=== PATIENT | male | born 1940 | race American Indian/Alaskan Native ===

== ENCOUNTER 2018-03-22 14:19 | Emergency (ER) | payer MEDICARE, MEDICAID, OTHER, SELFPAY ==
--- NOTE | 2018-03-22 14:26 | ED.WEAKNESS ---
HPI - Weakness General Chief complaint: Weakness Stated complaint: Weakness Time Seen by Provider: 03/22/18 14:26 Source: patient Mode of arrival: EMS Limitations: no limitations History of Present Illness HPI Narrative: [age] year male brought in by EMS for evaluation of 1-2 days of weakness. Patient did state that he rolled out of bed last evening and did hit his head. He stated that he has been feeling weak. No chest pain or shortness of breath Related Data Home Medications Medication Instructions Recorded Confirmed ranitidine HCl 150 mg PO BID #0 09/02/11 03/22/18 aspirin 81 mg PO DAILY 03/22/18 03/22/18 gabapentin 100 mg PO BID 03/22/18 03/22/18 gabapentin 200 mg PO BEDTIME 03/22/18 03/22/18 loratadine 10 mg PO DAILY PRN 03/22/18 03/22/18 metoprolol succinate 25 mg PO BID 03/22/18 03/22/18 omeprazole 1 cap PO BID 03/22/18 03/22/18 tizanidine 4 mg PO BID PRN 03/22/18 03/22/18 Previous Rx's Medication Instructions Recorded cephalexin [Keflex] 500 mg PO BID 5 Days #10 cap 03/22/18 Allergies Allergy/AdvReac Type Severity Reaction Status Date / Time No Known Allergies Allergy Uncoded 09/12/17 11:46 Review of Systems Constitutional Denies chills, Reports fatigue, Denies fever(s), Reports lethargy and Reports malaise Cardiovascular Denies chest pain and Denies dyspnea Respiratory Denies cough and Denies dyspnea Gastrointestinal Gastrointestinal: Reports abdominal pain, Denies nausea and Denies vomiting Musculoskeletal Denies myalgias and Denies arthralgias Integumentary/Breasts Denies lesions and Denies rash Endocrine Reports fatigue Hematologic/Lymphatic Denies easy bleeding and Denies easy bruising PFSH Medical History Gastroesophageal reflux disease (Acute) Hypertension (Acute) Surgical History H/O hernia repair (Acute) Social History Smoking Status: Never smoker Exam Initial Vital Signs Initial Vital Signs: Vital Signs Temperature 99.8 F H 03/22/18 14:35 Pulse Rate 80 03/22/18 14:35 Respiratory Rate 24 03/22/18 14:35 Blood Pressure 107/51 L 03/22/18 14:35 Pulse Oximetry 96 03/22/18 14:35 Const General: cooperative, well developed and well groomed HENLA Head: normal to inspection and normocephalic Resp Effort & Inspection: normal respiratory effort Auscultation: clear to auscultation bilaterally Cardio Rate: regular rate Rhythm: regular rhythm GI Inspection: non-distended Palpation: soft Other: Large right-sided ventral hernia consistent with stated history Skin Lesions: no lesions Rashes: no rashes Neuro General: alert, awake and oriented x3 Cognition: normal cognition Speech: speech normal Extrem General: capillary refill normal Psych Appearance: grossly normal and well kempt Course Orders Ordered: ED Orders 03/22/18 14:27 EKG-12 Lead Stat 03/22/18 14:57 CT head/brain wo con Stat XR chest 1V Stat 03/22/18 15:03 Complete Blood Count AUTO DIFF Stat Comprehensive Metabolic Panel Stat Lipase Stat Thyroid Stimulating Hormone Stat Troponin I Stat 03/22/18 15:25 XR pelvis 1-2V Stat 03/22/18 15:39 Lactate (Lactic Acid) Stat Procalcitonin Stat 03/22/18 15:46 Blood Culture Stat 03/22/18 15:55 Urine Culture Stat Urine Microscopic Stat Discontinued Medications Hydrocodone Bitart/Acetaminophen ([place] 5/325) 1 tab PO NOW ONE Stop: 03/22/18 15:26 Last Admin: 03/22/18 15:31 Dose: 1 tab Sodium Chloride (Normal Saline 0.9%) 1,000 mls @ 1,000 mls/hr IV BOLUS ONE Stop: 03/22/18 15:55 Last Infusion: 03/22/18 16:45 Dose: 0 mls/hr Admin: 03/22/18 15:30 Dose: 1,000 mls/hr Vital Signs - 8 hr 03/22/18 14:35 03/22/18 17:02 Temperature 99.8 F H Pulse Rate 80 80 Respiratory Rate 24 34 H Blood Pressure 107/51 L Blood Pressure [Left Arm] 103/49 L Pulse Oximetry 96 97 MDM - Weakness Lab Data Attestation: I reviewed the patient's lab results. Result diagrams: 03/22/18 15:03 03/22/18 15:03 Lab Results 03/22/18 03/22/18 03/22/18 Range/Units 15:03 15:03 15:03 WBC 17.8 H (4.5-11.0) X10^3/uL RBC 4.07 L (4.5-5.9) X10^6/uL Hgb 14.7 (13.5-17.5) g/dL Hct 42.8 (41-53) % MCV 105.1 H (80-100) fL MCH 36.1 H (26-34) PG MCHC 34.3 (30-36) % RDW 13.4 (11.6-14.8) % Plt Count 344 (150-400) X10^3/uL Neut % (Auto) 77.7 H (50-75) % Lymph % (Auto) 11.5 L (25-40) % [place] % (Auto) 10.0 (3-14) % Eos % (Auto) 0.2 L (2-4) % Baso % (Auto) 0.6 (0-2) % Neut # (Auto) 12636 H (3547-0548) /uL Sodium 138 (137-145) mmol/L Potassium 4.6 (3.4-5.1) mmol/L Chloride 100 (98-107) mmol/L Carbon Dioxide 28 (22-32) mmol/L BUN 18 (9-20) mg/dL Creatinine 1.20 (0.66-1.25) mg/dL Estimated GFR 58.4 L (>60) mL/min BUN/Creatinine Ratio 15.0 (6-22) Glucose 101 (80-110) mg/dL Lactate (0.7-2.1) mmol/L Calcium 8.6 (8.4-10.2) mg/dL Total Bilirubin 1.0 (0.2-1.3) mg/dL AST 19 (17-59) IU/L ALT 16 L (21-72) IU/L Alkaline Phosphatase 98 (38-126) U/L Troponin I < 0.012 (0.01-0.034) ng/mL Total Protein 7.1 (6.3-8.2) g/dL Albumin 3.6 (3.5-5.0) g/dL Globulin 3.5 (1.7-4.1) g/dL Albumin/Globulin Ratio 1.0 (1.0-2.8) Lipase 54 (23-300) U/L Procalcitonin (<0.5) ng/mL TSH 0.88 (0.47-4.68) uIU/mL Urine RBC (0-5/HPF) Urine WBC (0-5/HPF) Ur Squamous Epith Cells Urine Bacteria (None) Ur Culture Indicated? Micro UA Comment 03/22/18 03/22/18 03/22/18 Range/Units 15:39 15:39 15:55 WBC (4.5-11.0) X10^3/uL RBC (4.5-5.9) X10^6/uL Hgb (13.5-17.5) g/dL Hct (41-53) % MCV (80-100) fL MCH (26-34) PG MCHC (30-36) % RDW (11.6-14.8) % Plt Count (150-400) X10^3/uL Neut % (Auto) (50-75) % Lymph % (Auto) (25-40) % [place] % (Auto) (3-14) % Eos % (Auto) (2-4) % Baso % (Auto) (0-2) % Neut # (Auto) (9748-9274) /uL Sodium (137-145) mmol/L Potassium (3.4-5.1) mmol/L Chloride (98-107) mmol/L Carbon Dioxide (22-32) mmol/L BUN (9-20) mg/dL Creatinine (0.66-1.25) mg/dL Estimated GFR (>60) mL/min BUN/Creatinine Ratio (6-22) Glucose (80-110) mg/dL Lactate 1.5 (0.7-2.1) mmol/L Calcium (8.4-10.2) mg/dL Total Bilirubin (0.2-1.3) mg/dL AST (17-59) IU/L ALT (21-72) IU/L Alkaline Phosphatase (38-126) U/L Troponin I (0.01-0.034) ng/mL Total Protein (6.3-8.2) g/dL Albumin (3.5-5.0) g/dL Globulin (1.7-4.1) g/dL Albumin/Globulin Ratio (1.0-2.8) Lipase (23-300) U/L Procalcitonin 1.03 H (<0.5) ng/mL TSH (0.47-4.68) uIU/mL Urine RBC 1-5/hpf (0-5/HPF) Urine WBC 10-30/hpf H (0-5/HPF) Ur Squamous Epith Cells 1-5 /hpf Urine Bacteria Moderate (10-30) H (None) Ur Culture Indicated? Specimen cultured Micro UA Comment Not Reportable Urine Dip Bedside Urine Glucose Negative Bedside Urine Bilirubin ++ 2 Bedside Urine Ketone - Negative Urine Specific [place] 1.020 Bedside Urine Occult Blood - Negative Bedside Urine pH 6.0 Bedside Urine Protein + 30 Bedside Urine Urobilinogen +/- 1mg Bedside Urine Nitrite - Negative Bedside Urine Leukocytes ++ 125 Esterase Imaging Data Chest x-ray: Radiologist's impression: PROCEDURE: XR CHEST 1V INDICATIONS: SOB TECHNIQUE: One view of the chest was acquired. COMPARISON: [facility], , CHEST 1 VIEW, 09/03/2011, 6:58. [facility], , CHEST 2 VIEW, 02/14/2016, 19:39. FINDINGS: Surgical changes and devices: None. Lungs and pleura: No pleural effusions or pneumothorax. Lungs are abnormal with a chronic interstitial lung disease pattern with likelihood of a mild degree of superimposed acute pulmonary edema. Mediastinum: Mediastinal contours appear normal. Heart size is at or just above the upper limits of normal. Bones and chest wall: No suspicious bony lesions. Overlying soft tissues appear unremarkable. IMPRESSION: Chronic moderately severe interstitial lung disease with mild superimposed pulmonary edema. A focal pneumonia is not found. Dictated by: Cecilio Bearden M.D. on 03/22/2018 at 15:17 Approved by: Cecilio Bearden M.D. on 03/22/2018 at 15:18 CT scan - head: Radiologist's impression: PROCEDURE: CT HEAD/BRAIN WO CON INDICATIONS: fall yesterday with loc TECHNIQUE: Noncontrast 4.5 mm thick angled axial sections acquired from the foramen magnum to the vertex, with coronal and sagittal reformats. For radiation dose reduction, the following was used: automated exposure control, adjustment of mA and/or kV according to patient size. COMPARISON: None. FINDINGS: Image quality: Excellent. CSF spaces: Basal cisterns are patent. No extra-axial fluid collections. The ventricles are symmetric in size and shape. Brain: No intracranial bleeds or masses. There is cerebral volume loss for age, with resultant ventricular and sulcal prominence. There are periventricular and deep white matter chronic small vessel ischemic changes. There is intracranial internal carotid artery atherosclerosis. Skull and face: Calvarium and visualized facial bones appear intact, without suspicious lesions. Sinuses: Visualized sinuses and mastoids are clear. IMPRESSION: No trauma found. No skull fracture identified. Moderate microvascular atherosclerotic change is present within the deep white matter of each hemisphere. Dictated by: Cecilio Bearden M.D. on 03/22/2018 at 15:18 Approved by: Cecilio Bearden M.D. on 03/22/2018 at 15:19 Pelvis x-ray: Radiologist's impression: PROCEDURE: XR PELVIS 1-2V INDICATIONS: Right hip pain after fall TECHNIQUE: Single frontal view of the pelvis acquired. COMPARISON: None. FINDINGS: Bones: No fractures or dislocations. No suspicious bony lesions. Soft tissues: Visualized bowel gas pattern is unusually prominent in terms of gas filling of the bowel loops over the pelvis. No suspicious soft tissue calcifications. IMPRESSION: Unusual prominence of gas filling over the bowel loops over the pelvis. Chronicity and clinical significance not established. No trauma found. Dictated by: Cecilio Bearden M.D. on 03/22/2018 at 16:23 Approved by: Cecilio Bearden M.D. on 03/22/2018 at 16:23 ECG Data Attestation: I personally reviewed and interpreted this ECG as follows: Prior ECG tracings: not available for review Interpretation: Sinus rhythm Ventricular rate is 77 Normal axis Normal QRS Normal QTC Nonspecific ST T wave changes MDM Narrative Medical decision making narrative: Patient's workup here in the emergency department was positive for urinary tract infection. None of his radiologic studies showed acute pathology. He was given fluids. He was eating fast food that was brought in by his family members without any problems. He was alert and oriented. He was given a 1st dose of antibiotics here in the emergency department will send home with a prescription for this medication. Patient was given return precautions. I feel like a trial of oral antibiotics at home is not unreasonable for him. If he does return would consider admission to the hospital. Discussed all this with the patient and his family were bedside. They all expressed understanding and agreement with plan. Discharge Plan Departure Patient Disposition: Home Clinical Impression: Urinary tract infection Instructions: DI for Urinary Tract Infection (UTI) Activity Restrictions/Additional Instructions: Take all of your medications as directed. Make sure your increasing your fluid intake. Call your primary care doctor for a follow-up. Return to the emergency department for any new or worsening symptoms Prescriptions: New cephalexin [Keflex] 500 mg capsule 500 mg PO BID 5 Days Qty: 10 RF: 0 No Action ranitidine HCl 150 mg Tablet 150 mg PO BID Qty: 0 RF: 0 tizanidine 4 mg Tablet 4 mg PO BID PRN (Reason: Muscle Spasm) RF: 0 aspirin 81 mg Tablet,Delayed Release (Dr/Ec) 81 mg PO DAILY RF: 0 omeprazole 20 mg Capsule,Delayed Release(Dr/Ec) 1 cap PO BID RF: 0 gabapentin 100 mg Capsule 200 mg PO BEDTIME RF: 0 gabapentin 100 mg Capsule 100 mg PO BID RF: 0 metoprolol succinate 25 mg Tablet Extended Release 24 Hr 25 mg PO BID RF: 0 loratadine 10 mg Tablet 10 mg PO DAILY PRN (Reason: Allergy Symptoms) RF: 0
[2018-03-22 14:35] VITALS: BP 107/51; PULSE 80; RESP 24; TEMP 37.7; O2SAT 96
--- NOTE | 2018-03-22 14:57 | DI.RAD.S_ITS ---
PROCEDURE: XR CHEST 1V INDICATIONS: SOB TECHNIQUE: One view of the chest was acquired. COMPARISON: [facility], CHEST 1 VIEW, 09/03/2011, 6:58. [facility], CHEST 2 VIEW, 02/14/2016, 19:39. FINDINGS: Surgical changes and devices: None. Lungs and pleura: No pleural effusions or pneumothorax. Lungs are abnormal with a chronic interstitial lung disease pattern with likelihood of a mild degree of superimposed acute pulmonary edema. Mediastinum: Mediastinal contours appear normal. Heart size is at or just above the upper limits of normal. Bones and chest wall: No suspicious bony lesions. Overlying soft tissues appear unremarkable. IMPRESSION: Chronic moderately severe interstitial lung disease with mild superimposed pulmonary edema. A focal pneumonia is not found. Dictated by: Cecilio Bearden M.D. on 03/22/2018 at 15:17 Approved by: Cecilio Bearden M.D. on 03/22/2018 at 15:18
--- NOTE | 2018-03-22 14:57 | DI.CT.S_ITS ---
PROCEDURE: CT HEAD/BRAIN WO CON INDICATIONS: fall yesterday with loc TECHNIQUE: Noncontrast 4.5 mm thick angled axial sections acquired from the foramen magnum to the vertex, with coronal and sagittal reformats. For radiation dose reduction, the following was used: automated exposure control, adjustment of mA and/or kV according to patient size. COMPARISON: None. FINDINGS: Image quality: Excellent. CSF spaces: Basal cisterns are patent. No extra-axial fluid collections. The ventricles are symmetric in size and shape. Brain: No intracranial bleeds or masses. There is cerebral volume loss for age, with resultant ventricular and sulcal prominence. There are periventricular and deep white matter chronic small vessel ischemic changes. There is intracranial internal carotid artery atherosclerosis. Skull and face: Calvarium and visualized facial bones appear intact, without suspicious lesions. Sinuses: Visualized sinuses and mastoids are clear. IMPRESSION: No trauma found. No skull fracture identified. Moderate microvascular atherosclerotic change is present within the deep white matter of each hemisphere. Dictated by: Cecilio Bearden M.D. on 03/22/2018 at 15:18 Approved by: Cecilio Bearden M.D. on 03/22/2018 at 15:19
[2018-03-22 15:17] LABS: Add Manual Diff / Slide Review NO; Basophils Percent Auto 0.6 % (0-2); Eosinophils Percent Auto 0.2 % (2-4); Hematocrit 42.8 % (41-53); Hemoglobin 14.7 g/dL (13.5-17.5); Lymphocytes Percent Auto 11.5 % (25-40); Mean Corpuscular HGB Conc 34.3 % (30-36); Mean Corpuscular Hemoglobin 36.1 PG (26-34); Mean Corpuscular Volume 105.1 fL (80-100); Neutrophils Absolute Auto 13800 /uL (3000-5900); Neutrophils Percent Auto 77.7 % (50-75); Platelet Count 344 X10^3/uL (150-400); Red Blood Cell Count 4.07 X10^6/uL (4.5-5.9); Red Cell Distribution Width 13.4 % (11.6-14.8); White Blood Cell Count 17.8 X10^3/uL (4.5-11.0)
--- NOTE | 2018-03-22 15:25 | DI.RAD.S_ITS ---
PROCEDURE: XR PELVIS 1-2V INDICATIONS: Right hip pain after fall TECHNIQUE: Single frontal view of the pelvis acquired. COMPARISON: None. FINDINGS: Bones: No fractures or dislocations. No suspicious bony lesions. Soft tissues: Visualized bowel gas pattern is unusually prominent in terms of gas filling of the bowel loops over the pelvis. No suspicious soft tissue calcifications. IMPRESSION: Unusual prominence of gas filling over the bowel loops over the pelvis. Chronicity and clinical significance not established. No trauma found. Dictated by: Cecilio Bearden M.D. on 03/22/2018 at 16:23 Approved by: Cecilio Bearden M.D. on 03/22/2018 at 16:23
[2018-03-22 15:26] LABS: Alanine Aminotransferase 16 IU/L (21-72); Albumin 3.6 g/dL (3.5-5.0); Alkaline Phosphatase 98 U/L (38-126); Aspartate Aminotransferase 19 IU/L (17-59); Blood Urea Nitrogen 18 mg/dL (9-20); Calcium 8.6 mg/dL (8.4-10.2); Carbon Dioxide 28 mmol/L (22-32); Chloride 100 mmol/L (98-107); Estimated Glomerular Filt Rate 58.4 mL/min (>60); Globulin 3.5 g/dL (1.7-4.1); Glucose 101 mg/dL (80-110); HEMOLYSIS < 15 (0-50); Lipase 54 U/L (23-300); Potassium 4.6 mmol/L (3.4-5.1); Sodium 138 mmol/L (137-145); Total Protein 7.1 g/dL (6.3-8.2)
[2018-03-22] MEDS: SODIUM CHLORIDE 0.9% 1,000 ML 1000 ML IV (15:30)
[2018-03-22] MEDS: HYDROCODONE/ACET 5/325 TABLET 1 TAB PO (15:31)
[2018-03-22 15:49] LABS: Troponin I < 0.012 ng/mL (0.01-0.034)
[2018-03-22 16:03] LABS: Lactate (Lactic Acid) 1.5 mmol/L (0.7-2.1)
[2018-03-22 16:05] LABS: Thyroid Stimulating Hormone 0.88 uIU/mL (0.47-4.68)
[2018-03-22 16:29] LABS: Bacteria Urine Moderate (10-30); Culture Indicated Urine Specimen Cultured; RBC Urine 1-5/HPF (0-5/HPF); Squamous Epithelial Cell Urine 1-5 /HPF; WBC Urine 10-30/HPF (0-5/HPF)
[2018-03-22 17:02] VITALS: BP 103/49; PULSE 80; RESP 34; O2SAT 97
[2018-03-22 17:36] LABS: Procalcitonin 1.03 ng/mL (<0.5)
[2018-03-22] MEDS: cephALEXin 250 MG CAPSULE 500 MG PO (17:55)
[2018-03-22 18:04] VITALS: BP 107/53; PULSE 84; RESP 21; TEMP 36.7; O2SAT 100
== END 2018-03-22 18:16 | disposition home or self-care (01) ==
PROVIDERS: Emergency Provider Emergency Medicine; Family Provider Physician Assistant; PCP Physician Assistant
DX: N39.0 Urinary tract infection, site not specified (principal); R53.83 Other fatigue
CPT/HCPCS: 36415; 36591; 70450; 71045; 72170; 80053; 81003; 81015; 83605; 83690; 84145; 84443; 84484; 85025; 87040; 87077; 87086; 87147; 93005; 93010; 96360; 99283; 99285

== ENCOUNTER 2018-03-25 11:08 | Inpatient (IN) | payer MEDICARE, MEDICAID, OTHER, SELFPAY ==
[2018-03-25] VITALS (11 sets, daily range): BP systolic 90–147; BP diastolic 39–73; PULSE 64–93; RESP 18–37; TEMP 36.3–37.3; O2SAT 94–99; BMI 35.4; BMI 29.5
--- NOTE | 2018-03-25 | DI.US.S_ITS ---
PROCEDURE: US ABDOMEN LIMITED INDICATIONS: RUQ PAIN, ELEVATED LFT. R/O CHOLECYSTITIS TECHNIQUE: Real-time focused scanning was performed of the inguinal region, with image documentation. COMPARISON: None. FINDINGS: Liver measures 14.4 cm in length and is grossly unremarkable. The gallbladder is unremarkable. No gallstones are visualized. There is mild gallbladder wall thickening. No pericholecystic fluid or sonographic Dye sign. No biliary ductal dilatation is seen Pancreas is not well seen due to shadowing bowel gas. IMPRESSION: Mild gallbladder wall thickening however this is technically age indeterminate and nonspecific. No cholelithiasis is seen. No other sonographic evidence of acute cholecystitis. Please correlate clinically. Dictated by: Mina Velasco M.D. on 03/25/2018 at 17:07 Approved by: Mina Velasco M.D. on 03/25/2018 at 17:09
[2018-03-25] MEDS: SODIUM CHLORIDE 0.9% 1,000 ML 1000 ML IV ×3 (11:10→14:26)
--- NOTE | 2018-03-25 11:15 | ED_ITS ---
HPI - General Adult General Chief complaint: Chest Pain Stated complaint: SOB, chest pain Time Seen by Provider: 03/25/18 11:13 Source: patient and family Mode of arrival: EMS Limitations: altered mental status History of Present Illness HPI narrative: Patient is a 78-year-old male who I evaluated here in the emergency department a couple days ago for weakness. Diagnose the patient with a urinary tract infection. Patient is here with the family. They stated that they have been giving him his antibiotics. He states as he was discharged from the emergency department 2 days ago he has fall in 2 different times. They state that this morning they again found him next to his bed. Unknown as to how long he was down. He states that he has not been eating and drinking. Has been somewhat more confused. Related Data Home Medications Medication Instructions Recorded Confirmed ranitidine HCl 150 mg PO BID #0 09/02/11 03/25/18 aspirin 81 mg PO DAILY 03/22/18 03/25/18 loratadine 10 mg PO DAILY 03/22/18 03/25/18 metoprolol succinate 25 mg PO BID 03/22/18 03/25/18 omeprazole 1 cap PO BID 03/22/18 03/25/18 tizanidine 4 mg PO BID PRN 03/22/18 03/25/18 gabapentin 600 mg PO BID 03/25/18 03/25/18 Previous Rx's Medication Instructions Recorded cephalexin [Keflex] 500 mg PO BID 5 Days #10 cap 03/22/18 Allergies Allergy/AdvReac Type Severity Reaction Status Date / Time No Known Drug Allergies Allergy Verified 03/22/18 17:53 Review of Systems Constitutional Denies fever(s), Reports frequent falls and Reports lethargy Cardiovascular Denies chest pain and Denies dyspnea Respiratory Denies dyspnea Gastrointestinal Gastrointestinal: Reports abdominal pain, Denies nausea and Denies vomiting Genitourinary Denies dysuria Musculoskeletal Comments: Right hip pain Integumentary/Breasts Comments: Small bruise on his abdomen from where he fell Neurologic Reports confusion, Reports frequent falls and Reports lack of coordination Psychiatric Reports confusion Hematologic/Lymphatic Denies easy bleeding and Denies easy bruising [facility] Medical History UTI (urinary tract infection) (Acute) Gastroesophageal reflux disease (Chronic) Hypertension (Chronic) Surgical History H/O hernia repair (Chronic) Social History household members: family Smoking Status: Former smoker alcohol intake: former Exam Initial Vital Signs Initial Vital Signs: Vital Signs Temperature 97.7 F 03/25/18 11:15 Pulse Rate 66 03/25/18 11:15 Respiratory Rate 36 H 03/25/18 11:15 Blood Pressure 93/54 L 03/25/18 11:15 Pulse Oximetry 96 03/25/18 11:15 Const General: ill appearing Orientation: alert, awake, oriented to person, oriented to place and confused HENMT Head: normal to inspection and normocephalic Resp Effort & Inspection: normal respiratory effort Auscultation: clear to auscultation bilaterally Cardio Rate: regular rate Rhythm: regular rhythm GI Inspection: non-distended Palpation: soft, No firm and No tender Other: Large ventral hernia unchanged from his last evaluation Skin Other: 2 cm abrasion just above the ventral hernia scar on his abdomen. No surrounding erythema. No drainage. Neuro General: alert and awake Cognition: abnormal cognition (Confused) Extrem General: normal to inspection and capillary refill normal Other: Tenderness to palpation of the right hip. Psych Appearance: disheveled Scores GCS Troy coma scale eye opening: Spontaneous Troy coma scale verbal response: Confused Holly coma scale motor response: Obey commands Troy coma scale total score: 14 Course Orders Ordered: ED Orders 03/25/18 11:41 CT head/brain wo con Stat 03/25/18 12:20 Complete Blood Count AUTO DIFF Stat Comprehensive Metabolic Panel Stat Creatine Kinase Stat Lactate (Lactic Acid) Stat Procalcitonin Stat 03/25/18 12:30 Blood Culture Stat 03/25/18 14:31 Consult to Physical Therapy Evaluate & Treat Consult to [employer] Routine 03/25/18 14:32 Consult to Occupational Therapy Evaluate & Treat Education, smoking cessation ONGOING 03/26/18 05:00 CPK [Creatine Kinase] Routine Complete Blood Count AUTO DIFF Routine Comprehensive Metabolic Panel Routine Aspirin (Aspirin Ec) 81 mg PO DAILY SHANE Gabapentin (Neurontin) 600 mg PO BID SHANE Sodium Chloride (Normal Saline 0.9%) 3,265.86 mls @ 1,088.62 mls/hr 30 ml/kg infuse over 3 hr (3265.86 ml) IV CONT SHANE Last Admin: 03/25/18 14:02 Dose: Sodium Chloride (Normal Saline 0.9%) 1,000 mls @ 250 mls/hr IV CONT SHANE Last Admin: 03/25/18 15:26 Dose: 250 mls/hr Morphine Sulfate (Morphine) 2 mg IV Q6H PRN PRN Reason: Pain, Moderate (4-6) Last Admin: 03/25/18 16:37 Dose: 2 mg Ranitidine HCl (Zantac) 150 mg PO BID SHANE Tizanidine HCl (Zanaflex) 4 mg PO BID PRN PRN Reason: MUSCLE SPASMS Discontinued Medications Ceftriaxone Sodium/Dextrose (Rocephin) 1 gm in 50 mls @ 100 mls/hr IV NOW ONE Stop: 03/25/18 12:09 Last Infusion: 03/25/18 13:15 Dose: 0 mls/hr Admin: 03/25/18 12:40 Dose: 100 mls/hr Sodium Chloride (Normal Saline 0.9%) 1,000 mls @ 1,000 mls/hr IV BOLUS ONE Stop: 03/25/18 13:37 Last Infusion: 03/25/18 13:33 Dose: 0 mls/hr Admin: 03/25/18 11:10 Dose: 1,000 mls/hr Sodium Chloride (Normal Saline 0.9%) 1,000 mls @ 1,000 mls/hr IV BOLUS ONE Stop: 03/25/18 14:37 Last Infusion: 03/25/18 14:22 Dose: 0 mls/hr Admin: 03/25/18 13:48 Dose: 1,000 mls/hr Sodium Chloride (Normal Saline 0.9%) 1,000 mls @ 1,000 mls/hr IV BOLUS ONE Stop: 03/25/18 15:24 Last Infusion: 03/25/18 14:27 Dose: 1,000 mls/hr Admin: 03/25/18 14:26 Dose: 1,000 mls/hr Vital Signs - 8 hr 03/25/18 13:00 03/25/18 13:30 03/25/18 13:55 Temperature 97.7 F 97.4 F L Pulse Rate 64 71 70 Respiratory Rate 37 H 32 H 34 H Blood Pressure 120/57 L Blood Pressure [Right Arm] 103/52 L 103/49 L Pulse Oximetry 98 99 97 03/25/18 14:26 03/25/18 14:32 03/25/18 17:46 Temperature 98.4 F Pulse Rate 74 75 Respiratory Rate 28 H Blood Pressure 133/73 Blood Pressure [Right Arm] 130/63 Pulse Oximetry 97 97 94 03/25/18 19:30 Temperature 98.4 F Pulse Rate 85 Respiratory Rate 19 Blood Pressure 147/70 H Blood Pressure [Right Arm] Pulse Oximetry 98 Medical Decision Making Lab Data Lab results reviewed: Yes I reviewed the patient's lab results. Result diagrams: 03/25/18 12:20 03/25/18 12:20 Lab Results 03/25/18 03/25/18 03/25/18 Range/Units 12:20 12:20 12:20 WBC 12.2 H (4.5-11.0) X10^3/uL RBC 3.44 L (4.5-5.9) X10^6/uL Hgb 12.3 L (13.5-17.5) g/dL Hct 36.4 L (41-53) % MCV 105.8 H (80-100) fL MCH 35.8 H (26-34) PG MCHC 33.9 (30-36) % RDW 12.7 (11.6-14.8) % Plt Count 293 (150-400) X10^3/uL Neut % (Auto) 78.1 H (50-75) % Lymph % (Auto) 7.2 L (25-40) % Otero % (Auto) 12.1 (3-14) % Eos % (Auto) 2.3 (2-4) % Baso % (Auto) 0.3 (0-2) % Neut # (Auto) 9500 H (7218-6690) /uL RBC Morphology See below Polychromasia 1+ H Macrocytosis 1+ H Sodium 139 (137-145) mmol/L Potassium 4.2 (3.4-5.1) mmol/L Chloride 104 (98-107) mmol/L Carbon Dioxide 24 (22-32) mmol/L BUN 24 H (9-20) mg/dL Creatinine 1.00 (0.66-1.25) mg/dL Estimated GFR > 60.0 (>60) mL/min BUN/Creatinine Ratio 24.0 H (6-22) Glucose 106 (80-110) mg/dL Lactate (0.7-2.1) mmol/L Calcium 7.8 L (8.4-10.2) mg/dL Total Bilirubin 2.3 H (0.2-1.3) mg/dL AST 119 H (17-59) IU/L ALT 43 (21-72) IU/L Alkaline Phosphatase 127 H (38-126) U/L Total Creatine Kinase 750 H (55-170) U/L Total Protein 6.2 L (6.3-8.2) g/dL Albumin 2.7 L (3.5-5.0) g/dL Globulin 3.5 (1.7-4.1) g/dL Albumin/Globulin Ratio 0.8 L (1.0-2.8) Procalcitonin 0.63 H (<0.5) ng/mL 03/25/18 Range/Units 12:20 WBC (4.5-11.0) X10^3/uL RBC (4.5-5.9) X10^6/uL Hgb (13.5-17.5) g/dL Hct (41-53) % MCV (80-100) fL MCH (26-34) PG MCHC (30-36) % RDW (11.6-14.8) % Plt Count (150-400) X10^3/uL Neut % (Auto) (50-75) % Lymph % (Auto) (25-40) % Otero % (Auto) (3-14) % Eos % (Auto) (2-4) % Baso % (Auto) (0-2) % Neut # (Auto) (1939-7011) /uL RBC Morphology Polychromasia Macrocytosis Sodium (137-145) mmol/L Potassium (3.4-5.1) mmol/L Chloride (98-107) mmol/L Carbon Dioxide (22-32) mmol/L BUN (9-20) mg/dL Creatinine (0.66-1.25) mg/dL Estimated GFR (>60) mL/min BUN/Creatinine Ratio (6-22) Glucose (80-110) mg/dL Lactate 1.0 (0.7-2.1) mmol/L Calcium (8.4-10.2) mg/dL Total Bilirubin (0.2-1.3) mg/dL AST (17-59) IU/L ALT (21-72) IU/L Alkaline Phosphatase (38-126) U/L Total Creatine Kinase (55-170) U/L Total Protein (6.3-8.2) g/dL Albumin (3.5-5.0) g/dL Globulin (1.7-4.1) g/dL Albumin/Globulin Ratio (1.0-2.8) Procalcitonin (<0.5) ng/mL Imaging Data X-ray pelvis: Radiologist's impression: ROCEDURE: XR PELVIS 1-2V INDICATIONS: fall TECHNIQUE: 1 view(s) of the pelvis acquired. COMPARISON: [facility], XR PELVIS 1-2V, 03/22/2018, 15:35. FINDINGS: Bones: No fractures or dislocations. No suspicious bony lesions. Soft tissues: Atypical gas-filled loops of bowel project over the lower pelvis may be related to a hernia. No suspicious soft tissue calcifications. Multiple surgical clips project over the lower pelvis which are stable. IMPRESSION: No fracture. No osseous lesion. If symptoms and/or clinical suspicion for pathology persists, further assessment with repeat radiographs (7-10 days) or advanced imaging (e.g. CT, MRI or bone scan) may be helpful. Dictated by: Shea Jones MD, PhD on 03/25/2018 at 11:56 Approved by: Shea Jones MD, PhD on 03/25/2018 at 11:58 Chest x-ray: Radiologist's impression: PROCEDURE: XR CHEST 1V INDICATIONS: Shortness of breath possible sepsis TECHNIQUE: One view of the chest was acquired. COMPARISON: [facility], CHEST 2 VIEW, 02/14/2016, 19:39. [facility], XR CHEST 1V, 03/22/2018, 14:43. FINDINGS: Surgical changes and devices: None. Lungs and pleura: No pleural effusions or pneumothorax. Bilateral right greater than left interstitial thickening has progressed compared to 02/14/2016 and is stable compared to 03/22/2018. Mediastinum: Mediastinal contours appear normal. Heart size is normal. Bones and chest wall: No suspicious bony lesions. Overlying soft tissues appear unremarkable. IMPRESSION: Bilateral chronic interstitial lung disease. No definite acute cardiopulmonary disease process. Dictated by: Shea Jones MD, PhD on 03/25/2018 at 11:58 Approved by: Shea Jones MD, PhD on 03/25/2018 at 11:59 CT scan - head: Radiologist's impression: [address] [address] [address] Scan Report Signed Patient: Art Barreto WMR#: [id number] : 9Acct:[id number] Age/Sex: 78 / MDate of Service: 03/25/18 Loc: ED Accession Number: [id number] Procedure: CT head/brain wo con Ordering Provider: Kwabena Quigley D.O. PROCEDURE: CT HEAD/BRAIN WO CON INDICATIONS: fall AMS TECHNIQUE: Noncontrast 4.5 mm thick angled axial sections acquired from the foramen magnum to the vertex, with coronal and sagittal reformats. For radiation dose reduction, the following was used: automated exposure control, adjustment of mA and/or kV according to patient size. COMPARISON: [facility], CT, CT HEAD/BRAIN WO CON, 03/22/2018, 14:53. FINDINGS: Image quality: Excellent. CSF spaces: Basal cisterns are patent. No extra-axial fluid collections. The ventricles are symmetric in size and shape. Brain: No intracranial bleeds or masses. There is cerebral volume loss for age , with resultant ventricular and sulcal prominence. There are periventricular and deep white matter chronic small vessel ischemic changes. There is intracranial internal carotid artery and vertebral artery atherosclerosis. Skull and face: Calvarium and visualized facial bones appear intact, without suspicious lesions. Sinuses: Visualized sinuses and mastoids are clear. IMPRESSION: No acute intracranial disease process. Dictated by: Shea Jones MD, PhD on 03/25/2018 at 11:53 Approved by: Shea Jones MD, PhD on 03/25/2018 at 11:55 ECG Data Attestation: I personally reviewed and interpreted this ECG as follows: Prior ECG tracings: not available for review Interpretation: Sinus rhythm Ventricular rate is 72 Normal axis Occasional PACs Normal QRS Normal QTC No ST T wave changes MDM Narrative Medical decision making narrative: Patient is a known urinary tract infection from his last visit here in the emergency department. His a he does have an elevated white blood cell count. Elevated procalcitonin. Normal lactate. Has never been hypotensive since being here in the emergency department. Is significantly more weak today than from his last visit here in the ER. No new findings found on radiologic studies. Patient was afebrile. Blood cultures were obtained. He was given 1g Rocephin here in the emergency department for treatment of the suspected infection. Discussed the patient with the admitting provider who will admit for continued evaluation treatment. I did discuss the admission with the patient and the family were at bedside. They expressed understanding and agreement this plan. Discharge Plan Departure Patient Disposition: Admitted As Inpatient Clinical Impression: Urinary tract infection, Weakness, Acute alteration in mental status Discharge Date/Time: 03/25/18 14:29 Interventions: ED Discharge Assessment Last Done: 03/25/18 13:55 Admit Date/Time: 03/25/18 13:04 Admit Provider: Meli Dougherty
--- NOTE | 2018-03-25 11:29 | DI.RAD.S_ITS ---
PROCEDURE: XR PELVIS 1-2V INDICATIONS: fall TECHNIQUE: 1 view(s) of the pelvis acquired. COMPARISON: [facility], , XR PELVIS 1-2V, 03/22/2018, 15:35. FINDINGS: Bones: No fractures or dislocations. No suspicious bony lesions. Soft tissues: Atypical gas-filled loops of bowel project over the lower pelvis may be related to a hernia. No suspicious soft tissue calcifications. Multiple surgical clips project over the lower pelvis which are stable. IMPRESSION: No fracture. No osseous lesion. If symptoms and/or clinical suspicion for pathology persists, further assessment with repeat radiographs (7-10 days) or advanced imaging (e.g. CT, MRI or bone scan) may be helpful. Dictated by: Shea Jones MD, PhD on 03/25/2018 at 11:56 Approved by: Shea Jones MD, PhD on 03/25/2018 at 11:58
--- NOTE | 2018-03-25 11:30 | DI.RAD.S_ITS ---
PROCEDURE: XR CHEST 1V INDICATIONS: Shortness of breath possible sepsis TECHNIQUE: One view of the chest was acquired. COMPARISON: [facility], , CHEST 2 VIEW, 02/14/2016, 19:39. [facility], , XR CHEST 1V, 03/22/2018, 14:43. FINDINGS: Surgical changes and devices: None. Lungs and pleura: No pleural effusions or pneumothorax. Bilateral right greater than left interstitial thickening has progressed compared to 02/14/2016 and is stable compared to 03/22/2018. Mediastinum: Mediastinal contours appear normal. Heart size is normal. Bones and chest wall: No suspicious bony lesions. Overlying soft tissues appear unremarkable. IMPRESSION: Bilateral chronic interstitial lung disease. No definite acute cardiopulmonary disease process. Dictated by: Shea Jones MD, PhD on 03/25/2018 at 11:58 Approved by: Shea Jones MD, PhD on 03/25/2018 at 11:59
--- NOTE | 2018-03-25 11:41 | DI.CT.S_ITS ---
PROCEDURE: CT HEAD/BRAIN WO CON INDICATIONS: fall AMS TECHNIQUE: Noncontrast 4.5 mm thick angled axial sections acquired from the foramen magnum to the vertex, with coronal and sagittal reformats. For radiation dose reduction, the following was used: automated exposure control, adjustment of mA and/or kV according to patient size. COMPARISON: [facility], CT, CT HEAD/BRAIN WO CON, 03/22/2018, 14:53. FINDINGS: Image quality: Excellent. CSF spaces: Basal cisterns are patent. No extra-axial fluid collections. The ventricles are symmetric in size and shape. Brain: No intracranial bleeds or masses. There is cerebral volume loss for age, with resultant ventricular and sulcal prominence. There are periventricular and deep white matter chronic small vessel ischemic changes. There is intracranial internal carotid artery and vertebral artery atherosclerosis. Skull and face: Calvarium and visualized facial bones appear intact, without suspicious lesions. Sinuses: Visualized sinuses and mastoids are clear. IMPRESSION: No acute intracranial disease process. Dictated by: Shea Jones MD, PhD on 03/25/2018 at 11:53 Approved by: Shea Jones MD, PhD on 03/25/2018 at 11:55
[2018-03-25] MEDS: CEFTRIAXONE 1 GM/50 ML FROZ.PIGGY IV (12:40)
[2018-03-25 12:45] LABS: Basophils Percent Auto 0.3 % (0-2); Eosinophils Percent Auto 2.3 % (2-4); Hematocrit 36.4 % (41-53); Hemoglobin 12.3 g/dL (13.5-17.5); Lymphocytes Percent Auto 7.2 % (25-40); Mean Corpuscular HGB Conc 33.9 % (30-36); Mean Corpuscular Hemoglobin 35.8 PG (26-34); Mean Corpuscular Volume 105.8 fL (80-100); Monocytes Percent Auto 12.1 % (3-14); Neutrophils Absolute Auto 9500 /uL (3000-5900); Neutrophils Percent Auto 78.1 % (50-75); Platelet Count 293 X10^3/uL (150-400); Red Blood Cell Count 3.44 X10^6/uL (4.5-5.9); Red Cell Distribution Width 12.7 % (11.6-14.8); White Blood Cell Count 12.2 X10^3/uL (4.5-11.0)
[2018-03-25 12:47] LABS: Add Manual Diff / Slide Review SLIDE REVIEW
[2018-03-25 13:00] LABS: Alanine Aminotransferase 43 IU/L (21-72); Albumin 2.7 g/dL (3.5-5.0); Albumin Globulin Ratio 0.8 (1.0-2.8); Alkaline Phosphatase 127 U/L (38-126); Aspartate Aminotransferase 119 IU/L (17-59); Bilirubin Total 2.3 mg/dL (0.2-1.3); Blood Urea Nitrogen 24 mg/dL (9-20); Calcium 7.8 mg/dL (8.4-10.2); Carbon Dioxide 24 mmol/L (22-32); Chloride 104 mmol/L (98-107); Creatine Kinase 750 U/L (55-170); Estimated Glomerular Filt Rate > 60.0 mL/min (>60); Globulin 3.5 g/dL (1.7-4.1); Glucose 106 mg/dL (80-110); Sodium 139 mmol/L (137-145); Total Protein 6.2 g/dL (6.3-8.2)
[2018-03-25 13:03] LABS: HEMOLYSIS 58 (0-50); Potassium 4.2 mmol/L (3.4-5.1)
[2018-03-25 13:12] LABS: Procalcitonin 0.63 ng/mL (<0.5)
[2018-03-25 13:14] LABS: Macrocytosis 1+
[2018-03-25 13:15] LABS: Polychromasia 1+
--- NOTE | 2018-03-25 14:52 | P.HP_ITS ---
History of Present Illness Date Patient Seen: 03/25/18 Time Patient Seen: 14:41 Chief complaint: SOB, chest pain Narrative: 78-year-old male with past medical history of hypertension and GERD presents to emergency department status post fall. Patient was in the emergency department 3 days ago, during which time he presented with falls and presumed loss of consciousness. At that time workup was done, which revealed a UTI, but no fractures or intracranial abnormalities. Patient was given fluids in the emergency department and sent home on Keflex. Family brought patient home, but has not consistently been taking care of the patient 25/12 since discharge. They have left the house multiple times, and on 2 occasions found patient on the floor when they came back. After today's fall, patient was brought back to emergency department. Family is unaware of loss of consciousness, and patient does not remember. As per family, they have noted patient to be more lethargic and slightly altered today as opposed to any other days. When I interviewed patient, he is AAO x2, oriented to his name, birthday , the year, but unable to tell me his location. He denied any blurry vision or dizziness to me. He is currently complaining of right hip pain, which he has also complained about on Sunday. He denies any cough, shortness of breath, URI like symptoms. He does have right-sided musculoskeletal pain, likely due to his fall. Patient also has right upper quadrant pain on palpation, but no rebound tenderness. Patient denies any fevers or chills. He denies any nausea, vomiting, diarrhea, constipation. Patient is complaining of urinary frequency, but states that it has been going on for a very long time. Denies hematuria, dysuria. When I asked specifically about a fall, patient does remember falling , but he does not remember whether he passed out or not. He does not remember how long he was on the floor. He does not remember whether he had his head. Denies any leg swelling. In the emergency department, patient is afebrile, with normal pulse in the 70s, however he is tachypneic up to 37 RR, and hypotensive, down to 103/52. Lab work revealed WBC of 12.2 (which has improved from 17.83 days ago), hemoglobin 12.3, hematocrit 36.4, platelets 239. Sodium 139, potassium 4.2, chloride 104, bicarb 24, BUN 24, creatinine 1.0, blood glucose 106. CPK is 750, lactic acid is 1.0, T bili is 2.3, AST is 119, alk phos is 127. CT head was repeated, which revealed no acute intracranial disease process. Chest x-ray showed bilateral chronic interstitial lung disease, with no definite acute cardiopulmonary disease process. Pelvic x-ray done which showed no fractures or osseous lesions. Patient was given 3 L boluses in the ED, with improvement of blood pressure to 133/73, and respiratory rate coming down to 24-25RR. Patient was admitted for rehydration and further treatment of UTI. Patient History Medical History UTI (urinary tract infection) (Acute) Gastroesophageal reflux disease (Chronic) Hypertension (Chronic) Surgical History H/O hernia repair (Chronic) Family & Social History Safety & Behavioral: Feels Safe in Current Yes Environment Been Physically Hurt or No Threatened By a Person Tobacco & Substance use: Smoking Status Never smoker Substance Use Type does not use Meds Home Medications Medication Instructions Recorded Confirmed Type ranitidine HCl 150 mg PO BID #0 09/02/11 03/25/18 History aspirin 81 mg PO DAILY 03/22/18 03/25/18 History cephalexin [Keflex] 500 mg PO BID 5 Days #10 cap 03/22/18 03/25/18 Rx loratadine 10 mg PO DAILY 03/22/18 03/25/18 History metoprolol succinate 25 mg PO BID 03/22/18 03/25/18 History omeprazole 1 cap PO BID 03/22/18 03/25/18 History tizanidine 4 mg PO BID PRN 03/22/18 03/25/18 History gabapentin 600 mg PO BID 03/25/18 03/25/18 History Allergies Allergy/AdvReac Type Severity Reaction Status Date / Time No Known Drug Allergies Allergy Verified 03/22/18 17:53 Review of Systems Review of Systems All systems reviewed & are unremarkable except as noted in HPI and below Exam Vital Signs (past 8 hours): - 03/25/18 11:15 03/25/18 12:00 03/25/18 12:30 Temperature 97.7 F 97.5 F L 97.4 F L Pulse Rate 66 66 66 Respiratory Rate 36 H 36 H 34 H Blood Pressure 93/54 L Blood Pressure [Right Arm] 90/39 L 99/45 L Pulse Oximetry 96 97 97 03/25/18 13:00 03/25/18 13:30 03/25/18 13:55 Temperature 97.7 F 97.4 F L Pulse Rate 64 71 70 Respiratory Rate 37 H 32 H 34 H Blood Pressure 120/57 L Blood Pressure [Right Arm] 103/52 L 103/49 L Pulse Oximetry 98 99 97 03/25/18 14:26 Temperature Pulse Rate 74 Respiratory Rate Blood Pressure Blood Pressure [Right Arm] 130/63 Pulse Oximetry 97 Oxygen Delivery Method Room Air Narrative Exam Narrative: General: Patient is in mild distress from right hip pain HEENT: PERRLA bilaterally, EOMI bilaterally Neck: Supple, no LAD or JVD CV: Regular rate rhythm, no murmurs or gallops Respiratory: Clear to auscultation bilaterally, no wheezes or rhonchi GI: Tenderness to deep palpation in the right upper quadrant, positive bowel sounds, no organomegaly Musculoskeletal: Pain in the right hip while moving the right lower extremity Skin: Dry skin around all the foot digits. No edema or bruising appreciated Psych: Patient is AO x2, oriented to name and birthday, as well as the year. He does not however note the correct facility, or the date Neuro: No focal deficits Objective Labs Result Diagrams: 03/25/18 12:20 03/25/18 12:20 Labs: Laboratory Results - last 24 hr 03/25/18 03/25/18 03/25/18 12:20 12:20 12:20 WBC 12.2 H RBC 3.44 L Hgb 12.3 L Hct 36.4 L MCV 105.8 H MCH 35.8 H MCHC 33.9 RDW 12.7 Plt Count 293 Neut % (Auto) 78.1 H Lymph % (Auto) 7.2 L Louisa % (Auto) 12.1 Eos % (Auto) 2.3 Baso % (Auto) 0.3 Neut # (Auto) 9500 H RBC Morphology See below Polychromasia 1+ H Macrocytosis 1+ H Sodium 139 Potassium 4.2 Chloride 104 Carbon Dioxide 24 BUN 24 H Creatinine 1.00 Estimated GFR > 60.0 BUN/Creatinine Ratio 24.0 H Glucose 106 Lactate Calcium 7.8 L Total Bilirubin 2.3 H AST 119 H ALT 43 Alkaline Phosphatase 127 H Total Creatine Kinase 750 H Total Protein 6.2 L Albumin 2.7 L Globulin 3.5 Albumin/Globulin Ratio 0.8 L Procalcitonin 0.63 H 03/25/18 12:20 WBC RBC Hgb Hct MCV MCH MCHC RDW Plt Count Neut % (Auto) Lymph % (Auto) Louisa % (Auto) Eos % (Auto) Baso % (Auto) Neut # (Auto) RBC Morphology Polychromasia Macrocytosis Sodium Potassium Chloride Carbon Dioxide BUN Creatinine Estimated GFR BUN/Creatinine Ratio Glucose Lactate 1.0 Calcium Total Bilirubin AST ALT Alkaline Phosphatase Total Creatine Kinase Total Protein Albumin Globulin Albumin/Globulin Ratio Procalcitonin Assessment & Plan Plan: Assessment/Plan Narrative: 1. Hypotension -likely due to dehydration versus impending sepsis -lactic acid negative, patient is afebrile -WBCs are 12.2, however decreased from 17.8 three days ago -blood in urine cultures were drawn in the emergency department -patient received 3 L normal saline boluses, will continue rehydrating 0.9 NS at 250 cc an hour -monitor blood pressure, hold all BP medications 2. Rhabdomyolysis -likely due to fall -creatinine is still okay, at 1.0 -continue aggressive rehydration with 0.9 NS at 250 cc an hour -repeat CPK in the morning 3. UTI - urine cultures from 3 days ago grew group B strep -leukocytosis is improving, currently at 12.2 -continue ceftriaxone IV at this time -urine cultures repeated,pending results 4. Right hip pain -x-rays revealed no acute hip fractures -pain control at this time with morphine IV as needed 5. LFT elevation -will rule out gallbladder and liver pathology -T bili was 2.3, AST 119, alkaline phosphatase 127 -will get gallbladder and liver ultrasound 6. GERD -continue ranitidine home medication 7. Acute encephalopathy -likely due to dehydration, seems to have improved with hydration -CT head showed no acute intracranial pathology -continue to monitor mental status As patient's status is not back to baseline yet and no family at bedside, will code status to full code and confirm with the family 60 min spent evaluating and providing care for this patient
[2018-03-25] MEDS: SODIUM CHLORIDE 0.9% 1,000 ML 250 ML IV ×2 (15:26→23:48)
[2018-03-25] MEDS: MORPHINE 2 MG/ML INJ IV (16:37)
[2018-03-25] MEDS: GABAPENTIN 600 MG TABLET PO (21:35)
[2018-03-26] VITALS (15 sets, daily range): BP systolic 140–153; BP diastolic 78–91; PULSE 80–100; RESP 18–25; TEMP 36.6–37.3; O2SAT 96–100
[2018-03-26] MEDS: SODIUM CHLORIDE 0.9% 1,000 ML 250 ML IV ×2 (04:25→10:01)
[2018-03-26 05:13] LABS: RBC Urine None Seen (0-5/HPF)
[2018-03-26 05:22] LABS: Appearance Urine UA CLEAR; Bilirubin Urine UA 1+ (NEGATIVE); Glucose Urine UA NEGATIVE (Normal); Ketones Urine UA 1+ (NEGATIVE); Leukocyte Esterase Urine UA NEGATIVE (NEGATIVE); Nitrite Urine UA NEGATIVE (Negative); Occult Blood Urine UA TRACE-LYSED (Negative); Protein Urine UA 1+ (Negative); Specific Gravity Urine UA 1.015 (1.000-1.035); pH Urine UA 6.5 (4.5-8.0)
[2018-03-26 05:24] LABS: Color Urine UA Dark Yellow; Ictotest Urine Positive (Negative); Squamous Epithelial Cell Urine 0-1 /HPF
[2018-03-26 05:25] LABS: Bacteria Urine Occasional (0-1); Culture Indicated Urine Cult Not Indicated; WBC Urine 0-1/HPF (0-5/HPF)
[2018-03-26 06:56] LABS: Basophils Percent Auto 0.4 % (0-2); Eosinophils Percent Auto 3.8 % (2-4); Hematocrit 36.4 % (41-53); Hemoglobin 12.3 g/dL (13.5-17.5); Lymphocytes Percent Auto 8.7 % (25-40); Mean Corpuscular HGB Conc 33.8 % (30-36); Mean Corpuscular Volume 106.6 fL (80-100); Monocytes Percent Auto 10.7 % (3-14); Neutrophils Absolute Auto 8900 /uL (3000-5900); Neutrophils Percent Auto 76.4 % (50-75); Platelet Count 295 X10^3/uL (150-400); Red Blood Cell Count 3.42 X10^6/uL (4.5-5.9); Red Cell Distribution Width 13.1 % (11.6-14.8); White Blood Cell Count 11.7 X10^3/uL (4.5-11.0)
[2018-03-26 06:58] LABS: Alanine Aminotransferase 48 IU/L (21-72); Albumin 2.6 g/dL (3.5-5.0); Albumin Globulin Ratio 0.8 (1.0-2.8); Alkaline Phosphatase 148 U/L (38-126); Aspartate Aminotransferase 100 IU/L (17-59); Bilirubin Total 1.3 mg/dL (0.2-1.3); Blood Urea Nitrogen 12 mg/dL (9-20); Carbon Dioxide 21 mmol/L (22-32); Chloride 107 mmol/L (98-107); Creatine Kinase 464 U/L (55-170); Estimated Glomerular Filt Rate > 60.0 mL/min (>60); Globulin 3.1 g/dL (1.7-4.1); Glucose 80 mg/dL (80-110); HEMOLYSIS < 15 (0-50); Potassium 3.4 mmol/L (3.4-5.1); Sodium 140 mmol/L (137-145); Total Protein 5.7 g/dL (6.3-8.2)
[2018-03-26 07:02] LABS: Add Manual Diff / Slide Review SLIDE REVIEW
[2018-03-26] MEDS: MORPHINE 2 MG/ML INJ IV ×3 (07:58→21:30)
[2018-03-26] MEDS: GABAPENTIN 600 MG TABLET PO ×2 (10:02→21:30)
[2018-03-26] MEDS: ASPIRIN EC 81 MG TABLET PO (10:02)
--- NOTE | 2018-03-26 10:43 | CM.DANOTE ---
DCP: Case received, EMR reviewed and met with patient. Introduced self and role. DCP template completed with information currently available. Patient is a 78 year old male who admitted yesterday afternoon to the care of the hospitalist team. PCP: Dr. Ruiz. Payer: confirmed: Medicare/Medicaid. Patient came to hospital via ambulance secondary to a ground level fall. Patient carries diagnosis of urinary tract infection and dehydration. Met with patient and introduced self. He stated that he lives with son. Met with daughter, Sussy. She stated that she also lives nearby. Son is not always home with patient, and according to daughter, has had 3 recent falls. P: DCP to follow closely. Discussed home caregivers with daughter, and she stated that she has some numbers to call. Patient may benefit with detention if he has 3 day stay. Other option is home health. Solange Flor RN/Fundraising Manager
--- NOTE | 2018-03-26 11:10 | OT.IP.EVAL ---
Past Medical History (Last Reviewed 03/25/18 @ 20:33 by Kwabena Quigley DO) UTI (urinary tract infection) (Acute) Gastroesophageal reflux disease (Chronic) Hypertension (Chronic) Surgical History (Last Reviewed 03/25/18 @ 20:33 by Kwabena Quigley DO) H/O hernia repair (Chronic) Occupational Therapy Inpatient Evaluation/Re-Eval M1 PT/OT-IP Prior Functional Status Start: 03/26/18 12:19 Freq: NEEDED Status: Active Protocol: Document 03/26/18 11:10 PJM (Rec: 03/26/18 15:38 PJ [id number]) Medical Review Prior Functional Status Medical History Reviewed Yes Mobility and Gait Pt states he has 4WW. Per chart notes pt has had 3 falls in last few days prior to admit. Activities of Daily Living and IADL's Pt states he was indep with all self care including using tub/shower for bathing. Pt irritable with questions about home situation and no family here to confirm. Social History Household Members family Living Arrangements House Number of Floors (Floors) One Floor Number of Stairs To Enter/Railing? 2 stairs to enter with R rail per pt. Home Environment Standard Height Toilet Tub/Shower Employment Status Retired Additional Social History Comment pt states he lives with son (works) and son's fiance (unemployed); pt unwilling to give further information about home setting; no family here at present M2 OT-IP Current Condition Start: 03/26/18 15:08 Freq: Status: Active Protocol: Document 03/26/18 11:10 PJM (Rec: 03/26/18 15:38 PJ [id number]) Occupational Therapy Current Condition Current Condition Evaluation Date 03/26/18 Treatment Diagnosis decreased self care, functional mobility with dx: UTI, rhabdomyolysis Post Operative Precautions Other Precautions fall risk, bed/chair alarm, R hip pain M3 OT- IP Subjective and Pain Start: 03/26/18 15:08 Freq: Status: Active Protocol: Document 03/26/18 11:10 PJM (Rec: 03/26/18 15:38 PJ [id number]) OT- Subjective Occupational Therapy Visit Type Type Initial Evaluation Visit Start Time 10:45 Visit Stop Time 11:10 Total Visit Minutes 25 Occupational Therapy Visit Comments Patient Comments Why are you asking me all these questions? Patient/Caregiver Goals none verbalized this session OT Pain Assessment Pain Present Pain Present Pain Reported Location Right Hip Scale Used pt does not rate on 10 pt scale; pt adamant about not raising HOB to full height Description Aching Acute M4 OT- IP ADL's Start: 03/26/18 15:08 Freq: Status: Active Protocol: Document 03/26/18 11:10 PJM (Rec: 03/26/18 15:38 PJ [id number]) OT [id number] General Evaluation Self-Feeding Ability Standby Assistance Comments OT Self-Feeding Comments Pt needs max encouragement to allow head of bed to be raised as needed for safe oral intake. pt able to feed self with R hand after set up but appetite poor. Pt reports poor/ absent dentition so discussed with RN about need for soft diet. OT ADL-Grooming Comments OT Grooming Comments Pt declined to participate OT ADL-Oral Care Comments Oral Care Comments Pt declined to participate OT ADL-Dressing General Eval Upper Body Dressing Ability Total Assistance Lower Body Dressing Ability Total Assistance OT ADL-Toileting General Evaluation Toileting Ability Total Assistance OT ADL-Bathing General Evaluation Bathing Ability Total Assistance M5 OT- IP IADL's Start: 03/26/18 15:08 Freq: Status: Active Protocol: Document 03/26/18 11:10 PJM (Rec: 03/26/18 15:38 PJ [id number]) OT-Instrumental Activities of Daily Living Deficits IADL Deficits Identified Deficits Home Safety Awareness Awareness of Need for Assistance at Home Decreased Awareness Ability to Problem Solve Emergency Unable to Problem Solve Situations Medication Management Medication Management Comments Pt needs total assist at present. Money Management Money Management Comments Pt needs total assist at present. Meal Preparation Meal Preparation Comments Pt needs total assist at present. Executive Legal Secretary Executive Legal Secretary Comments Pt needs total assist at present. Driving Driving Comments Pt no longer drives. M6 OT- IP Functional Cognition Start: 03/26/18 15:08 Freq: Status: Active Protocol: Document 03/26/18 11:10 PJM (Rec: 03/26/18 15:38 PJ [id number]) Cognitive Factors Limiting Selfcare Function Cognitive Ability Level of Alertness Alert Patient Orientation Name Year Place Attention Span Ability Unable to Sustain Attention Ability to Follow Commands Able to Follow One Step Commands Memory Description Short Term Impaired Safety Awareness Underestimates Need for Assistance Problem Solving Ability Unable to Identify Errors Needs Assist to Identify Solutions Executive Function Ability Unable to Make Plans Unable to Organize Plans Unable to Remember Details Unable to Integrate Past Experience With Present Action Abstract Thinking Ability Unable to Draw Logical Conclusions Unable to Be Adaptable in Thinking Cognitive Comments Cognitive Assessment Comments Pt very irritable this session, but agreed to self feeding with encouragement. Decreased recall of recent events at home and decreased insight into current situation. Pt oriented to self, year, hospital, not month or date. OT- Vision and Hearing OT- Hearing Assessment OT- Hearing Assessment Hearing Impaired OT- Vision Assessment Visual Acuity WFL Vision Assessment Comments Pt wears glasses for TV and reading by his report./ Pt able to read wall clock without glasses. Pt has bifocals here. Pt quite [place] but states he does not have hearing aids. M7 OT- IP Mobility and Balance Start: 03/26/18 15:08 Freq: Status: Active Protocol: Document 03/26/18 11:10 PJM (Rec: 03/26/18 15:38 PJM [id number]) OT-Transfer Assessment Comments Mobility Comments Pt adamantly declines bed mobility and does not want head of be raise due to R hip pain. OT- Gait Assessment Comments Gait Ability Comments did not occur OT- Balance Assessment Comments Other Balance Tests/Deviations/Treatment did not occur : M8 OT- IP Objective Assessments Start: 03/26/18 15:08 Freq: Status: Active Protocol: Document 03/26/18 11:10 PJM (Rec: 03/26/18 15:38 PJM [id number]) OT Gross Range of Motion Upper Extremity Range of Motion Assessment Left Impaired ROM Impairments RUE grossly WFL by observation with shoulder scaption limited to ~80 degrees by stiffness. LUE: Pt has large old surgical scar on lateral upper arm. Per RN, pt has no clavicle on that side. L forearm is significantly atrophied. 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 Pt unwilling to try to move LUE. 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 OT- Coordination Assessment Upper Extremity Finger to Nose Test Left UE Impaired Finger Tapping Test Left UE Impaired Comments Coordination Comments RUE appears WFL for self feeding. LUE non functional this session OT-Muscle Tone Assessment Muscle Tone WNL Yes OT Sensation Assessment Comments Summary Comments Unable to assess as pt not willing to participate M9 OT- IP Assessment and Plan Start: 03/26/18 15:08 Freq: Status: Active Protocol: Document 03/26/18 11:10 PJM (Rec: 03/26/18 15:38 PJM [id number]) OT Summary Assessment and Plan Potential Rehabilitation Potential Fair Analytic Complexity at Evaluation Moderate Summary OT Impairments Pain Range of Motion Strength Balance Coordination Functional Cognition Functional Mobility Grooming Dressing Toileting Bathing Toilet Transfers Shower Transfers Assessment Summary Moderate complexity OT assessment due to co-morbidities, evolving medical status with rhabdomyolysis and cognitive deficits. Pt presents with significant performance deficits in all functional mobility and has not yet been out of bed due to R hip pain. He is far below his baseline level of function in all self care. Pt not safe to return home at this time due to high care needs. Currently recommend SNF for further subacute rehab services. Goals Grooming Goal Standby Assistance Dressing Goal Moderate Assistance Toileting Goal Moderate Assistance Toilet Transfer Goal Moderate Assistance Bedside Commode OT-Other Goals Pt to tolerate 1 hr in chair 2x day for self care skills. Days to Meet Goals 7 Frequency of Treatment Frequency Of Treatment Once a Day Treatment Plan OT Treatment Plan ADL Training Functional Cognition Training Patient/Family Education Discharge Planning Discharge Recommendations OT Discharge Recommendations SNF Rehab Home Equipment Needs to be determined pending progress
--- NOTE | 2018-03-26 12:22 | PT.IPTN ---
Physical Therapy Treatment Note M3 PT-IP Subjective Start: 03/26/18 12:19 Freq: NEEDED Status: Active Protocol: Document 03/26/18 12:20 AB (Rec: 03/26/18 12:21 AB [id number]) Subjective Physical Therapy Visit Type Type Patient Refusal Notes checked on pt and obtained PLOF and home set up but when asked to get up, pt refused. 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 encouraged pt to at least try and pt continues to refuse and with increase agitation. will check again in afternoon.
--- NOTE | 2018-03-26 12:53 | DI.RAD.S_ITS ---
PROCEDURE: XR CHEST 1V INDICATIONS: Cough, increased shortness of breath overnight TECHNIQUE: One view of the chest was acquired. COMPARISON: [facility], CR, XR CHEST 1V, 03/25/2018, 11:08. FINDINGS: Surgical changes and devices: None. Lungs and pleura: Interstitial thickening and airspace opacities are again seen scattered in bilateral lung nye more prominent on the right side, not significantly changed from previous study. No new infiltrate or pneumothorax. No significant pleural effusion. Mediastinum: Mediastinal contours appear normal. Heart size is enlarged. Bones and chest wall: No suspicious bony lesions. Overlying soft tissues appear unremarkable. IMPRESSION: Chronic appearing bilateral interstitial lung disease. No definite acute cardiopulmonary pathology. Dictated by: Armando Ramirez M.D. on 03/26/2018 at 13:19 Approved by: Armando Ramirez M.D. on 03/26/2018 at 13:34
--- NOTE | 2018-03-26 12:58 | PC.NURSE ---
Cardiac: ICU just called 4X to report patient's heart rate briefly up into the 150's-160's (and looks like possibly A-fib). HR has not sustained that high for more than a few seconds, quickly self-correcting (and with HR around 100). Patient's BP's stable. Patient denies any new onset chest pain/palpitations/pressure or dyspnea. This short story writer spoke to Dr Dougherty and informed her of the same. Received order for STAT chest x-ray and EKG. Asked if she wanted to re-start his Metoprolol. Dr Dougherty said she would look over all of his stuff and see him next. X-ray done, RT called re: STAT EKG order.
--- NOTE | 2018-03-26 13:07 | PM.PN.1 ---
Subjective Date Patient Seen: 03/26/18 Time Patient Seen: 13:09 Interval history: FOLLOW UP ON RHABDOMYOLYSIS, DEHYDRATION, WEAKNESS, AND UTI Patient seen at bedside. No overnight events. Patient is becoming more crackly at the bases and had an episode of tachycardia, with HR 150-160s. EKG pending. BP elevated this morning. Patient is still complaining of R hip pain. Exam Vital Signs (past 8 hours): - 03/26/18 06:01 03/26/18 07:45 03/26/18 08:24 Temperature 99.2 F 97.8 F Pulse Rate 91 H 92 H Respiratory Rate 18 18 Blood Pressure 146/81 H 153/85 H Pulse Oximetry 98 97 96 03/26/18 11:56 Temperature 97.9 F Pulse Rate 88 Respiratory Rate 24 Blood Pressure 151/86 H Pulse Oximetry 99 Oxygen Delivery Method Room Air Oxygen Flow Rate 0 Narrative Exam Narrative: General: Patient is in mild distress from right hip pain HEENT: PERRLA bilaterally, EOMI bilaterally Neck: Supple, no LAD or JVD CV: Regular rate rhythm, no murmurs or gallops Respiratory: Clear to auscultation BL, but crackles noted at the bases BL GI: Tenderness to deep palpation in the right upper quadrant, positive bowel sounds, no organomegaly Musculoskeletal: Pain in the right hip while moving the right lower extremity Skin: Dry skin around all the foot digits. No edema or bruising appreciated Psych: Patient is AO x2, oriented to name and birthday, as well as the year. He does not however note the correct facility, or the date Neuro: No focal deficits Objective Labs Result Diagrams: 03/26/18 06:09 03/26/18 06:09 Labs: Laboratory Results - last 24 hr 03/25/18 03/25/18 03/25/18 12:20 12:20 12:20 WBC RBC Hgb Hct MCV MCH MCHC RDW Plt Count Neut % (Auto) Lymph % (Auto) [place] % (Auto) Eos % (Auto) Baso % (Auto) Neut # (Auto) RBC Morphology See below Polychromasia 1+ H Macrocytosis 1+ H Sodium Potassium Chloride Carbon Dioxide BUN Creatinine Estimated GFR BUN/Creatinine Ratio Glucose Lactate 1.0 Calcium Total Bilirubin AST ALT Alkaline Phosphatase Total Creatine Kinase Total Protein Albumin Globulin Albumin/Globulin Ratio Procalcitonin 0.63 H Urine Color Urine Appearance Urine pH Ur Specific [place] Urine Protein Urine Glucose (UA) Urine Ketones Urine Occult Blood Urine Nitrate Urine Bilirubin Urine Ictotest Urine Urobilinogen Ur Leukocyte Esterase Urine RBC Urine WBC Ur Squamous Epith Cells Urine Bacteria Ur Culture Indicated? Micro UA Comment 03/25/18 03/26/18 03/26/18 17:00 06:09 06:09 WBC 11.7 H RBC 3.42 L Hgb 12.3 L Hct 36.4 L MCV 106.6 H MCH 36.0 H MCHC 33.8 RDW 13.1 Plt Count 295 Neut % (Auto) 76.4 H Lymph % (Auto) 8.7 L [place] % (Auto) 10.7 Eos % (Auto) 3.8 Baso % (Auto) 0.4 Neut # (Auto) 8900 H RBC Morphology Polychromasia Macrocytosis Sodium 140 Potassium 3.4 Chloride 107 Carbon Dioxide 21 L BUN 12 Creatinine 0.80 Estimated GFR > 60.0 BUN/Creatinine Ratio 15.0 Glucose 80 Lactate Calcium 7.0 L Total Bilirubin 1.3 AST 100 H ALT 48 Alkaline Phosphatase 148 H Total Creatine Kinase 464 H D Total Protein 5.7 L Albumin 2.6 L Globulin 3.1 Albumin/Globulin Ratio 0.8 L Procalcitonin Urine Color Dark yellow Urine Appearance Clear Urine pH 6.5 Ur Specific [place] 1.015 Urine Protein 1+ H Urine Glucose (UA) Negative Urine Ketones 1+ H Urine Occult Blood Trace-lysed Urine Nitrate Negative Urine Bilirubin 1+ H Urine Ictotest Positive H Urine Urobilinogen 4.0 H Ur Leukocyte Esterase Negative Urine RBC None seen Urine WBC 0-1/hpf Ur Squamous Epith Cells 0-1 /hpf Urine Bacteria Occasional (0-1) D Ur Culture Indicated? Cult not indicated Micro UA Comment Not Reportable Assessment & Plan Plan: Assessment/Plan Narrative: 1. Hypotension -resolved, now patient is hypertensive -Was likely due to dehydration -patient received 3 L normal saline boluses, and was maintained on 250cc/hr -will now resume Metoprolol Succinate 25mg BID 2. Rhabdomyolysis -likely due to fall -creatinine is still okay, at 1.0 -CPK on the down trend, now 464 -decrease hydration to 100cc/hr -repeat CPK in the morning 3. UTI - urine cultures from 3 days ago grew group B strep -leukocytosis is improving, currently at 11.7 -continue ceftriaxone IV at this time...possibly switch back to Cephalexin tomorrow 4. Right hip pain -x-rays revealed no acute hip fractures -pain control at this time with morphine IV as needed 5. LFT elevation -will rule out gallbladder and liver pathology -Currently on the downtrend -Pending GB/Liver US 6. GERD -continue ranitidine home medication 7. Acute encephalopathy -likely due to dehydration, seems to have improved with hydration -CT head showed no acute intracranial pathology -continue to monitor mental status 8. Tachycardia - Will get EKG stat - Resume metoprolol BID home dose - Decrease fluids rate DNR/DNI 20 min spent evaluating and providing care for this patient Possible placement Quality VTE Deep Vein Thrombosis/Pulmonary Embolism Present on Admission: No
--- NOTE | 2018-03-26 13:32 | RT ---
EKG performed and given to nurse Stuart.
[2018-03-26] MEDS: METOPROLOL TARTRATE 5 MG/5 ML INJ 2.5 MG IV (14:14)
--- NOTE | 2018-03-26 16:26 | PT.IPTN ---
Physical Therapy Treatment Note M3 PT-IP Subjective Start: 03/26/18 12:19 Freq: NEEDED Status: Active Protocol: Document 03/26/18 16:23 AB (Rec: 03/26/18 16:26 AB [id number]) Subjective Physical Therapy Visit Type Type Patient Refusal Notes checked on pt again and pt continues to refuse and gets easily agitated when motivated to participate. nurse aware.
--- NOTE | 2018-03-26 20:57 | PM.EVENT ---
Date Patient Seen: 03/26/18 Time Patient Seen: 20:54 Received a call from patient's nurse. Nurse is questioning if IV fluids need to be continued. Reports patient to be short of breath. Patient seen at bedside and evaluated. Patient in acute respiratory distress. Awake and alert. Follows commands. Crackles present throughout upper and lower lobes. Lower lobes also diminished bilaterally. On room air. Tachypneic, with counted respiratory rate of 36. S1-S2, no murmur Abdomen rounded, NT/ND, no hepatomegaly No Cintron catheter present No lower extremity edema bilaterally, distal pulses palpable Patient's a.m. labs reviewed. Plan Obtain a set of vitals Stop IV fluids Give 40 mg IV Lasix x1 Give 40 mEq KCL x1 (hypokelemic, K 3.4 per am lab) BMP, Mg at 2 am Plan of care discussed with patient's nurse
[2018-03-26] MEDS: TIZANIDINE 4 MG TABLET PO (21:30)
[2018-03-26] MEDS: METOPROLOL ER 25 MG TABLET PO (21:30)
[2018-03-26] MEDS: POTASSIUM CHLORIDE 20 MEQ/15 ML UDC 40 MEQ PO (21:48)
[2018-03-26] MEDS: FUROSEMIDE 40 MG/4 ML VIAL IV (21:48)
--- NOTE | 2018-03-26 23:34 | PC.NURSE ---
Assumed care of pt from outgoing shift at 1500 this day. Pt asleep at this time. arouses to voice. pt refuses turns, pt ate dinner. fluids infusing. compliant with nursing staff and med passes. denies pain at this time. 2100- Pt fluids done infusing, but pt has increased work of breathing, audibly wheezing, crackles to bases. pt hob elevated. called, orders rec'd. complains of pain 03/13. given meds per AUG. Pt did cough with meds. elevated hob and pt did ok. encouraged to take time. placed on 1L [place] [facility] saturation is 97% on RA, oxygen for comfort. Pt doesn't use call light typically. encouraged to call when needing to toilet. Pt not oob, refuses. incontinent and changed. pt has long skinny opening to upper butt crack, barrier cream applied. offloaded turned to right side lying, knees balanced and heels floated. will continue to monitor. .
[2018-03-27] VITALS (10 sets, daily range): BP systolic 91–125; BP diastolic 48–66; PULSE 79–90; RESP 16–21; TEMP 36.2–37.6; O2SAT 95–99
[2018-03-27 02:27] LABS: Add Manual Diff / Slide Review NO; Basophils Percent Auto 0.5 % (0-2); Eosinophils Percent Auto 5.2 % (2-4); Hematocrit 36.5 % (41-53); Hemoglobin 12.4 g/dL (13.5-17.5); Lymphocytes Percent Auto 10.8 % (25-40); Mean Corpuscular Hemoglobin 35.5 PG (26-34); Mean Corpuscular Volume 104.4 fL (80-100); Monocytes Percent Auto 11.5 % (3-14); Neutrophils Absolute Auto 8700 /uL (3000-5900); Platelet Count 318 X10^3/uL (150-400); Red Blood Cell Count 3.49 X10^6/uL (4.5-5.9); Red Cell Distribution Width 12.9 % (11.6-14.8); White Blood Cell Count 12.1 X10^3/uL (4.5-11.0)
[2018-03-27 02:32] LABS: Alanine Aminotransferase 51 IU/L (21-72); Albumin 2.6 g/dL (3.5-5.0); Albumin Globulin Ratio 0.9 (1.0-2.8); Alkaline Phosphatase 174 U/L (38-126); Aspartate Aminotransferase 88 IU/L (17-59); Bilirubin Total 1.1 mg/dL (0.2-1.3); Blood Urea Nitrogen 10 mg/dL (9-20); Calcium 7.2 mg/dL (8.4-10.2); Carbon Dioxide 23 mmol/L (22-32); Chloride 101 mmol/L (98-107); Creatine Kinase 174 U/L (55-170); Estimated Glomerular Filt Rate > 60.0 mL/min (>60); Glucose 109 mg/dL (80-110); HEMOLYSIS < 15 (0-50); Magnesium 1.5 mg/dL (1.6-2.3); Sodium 133 mmol/L (137-145); Total Protein 5.6 g/dL (6.3-8.2)
--- NOTE | 2018-03-27 02:42 | DI.RAD.S_ITS ---
PROCEDURE: XR CHEST 1V INDICATIONS: Dyspnea TECHNIQUE: One view of the chest was acquired. COMPARISON: [facility], CR, CHEST 2 VIEW, 02/14/2016, 19:39. [facility], CR, XR CHEST 1V, 03/26/2018, 12:58. [facility], CR, XR CHEST 1V, 03/25/2018, 11:08. FINDINGS: Surgical changes and devices: None. Lungs and pleura: No pleural effusions or pneumothorax. Lungs are again seen to be abnormal with a chronic interstitial prominence/pulmonary fibrosis pattern and little if any change that would indicate presence of pneumonia or CHF. The overall pattern of lung disease has mildly worsened however from February of 2016.. Mediastinum: Mediastinal contours appear normal. Heart size is normal. Bones and chest wall: No suspicious bony lesions. Overlying soft tissues appear unremarkable. 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 Dictated by: Cecilio Bearden M.D. on 03/27/2018 at 8:04 Approved by: Cecilio Bearden M.D. on 03/27/2018 at 8:05
[2018-03-27] MEDS: MORPHINE 2 MG/ML INJ IV ×3 (06:33→20:09)
[2018-03-27] MEDS: GABAPENTIN 600 MG TABLET PO ×2 (08:37→20:09)
[2018-03-27] MEDS: ASPIRIN EC 81 MG TABLET PO (08:37)
--- NOTE | 2018-03-27 13:00 | PT.IPTN ---
Physical Therapy Treatment Note M3 PT-IP Subjective Start: 03/26/18 12:19 Freq: NEEDED Status: Active Protocol: Document 03/27/18 12:59 AB (Rec: 03/27/18 13:00 AB [id number]) Subjective Physical Therapy Visit Type Type Patient Refusal Notes pt continues to refuse PT and stated that he does not want to get out of bed due to his arthritis. will check again in pm.
--- NOTE | 2018-03-27 13:43 | OT.IP.TRT ---
Occupational Therapy Treatment Note M2 OT-IP Current Condition Start: 03/26/18 15:08 Freq: Status: Active Protocol: Document 03/26/18 11:10 PJM (Rec: 03/26/18 15:38 PJ [id number]) Occupational Therapy Current Condition Current Condition Evaluation Date 03/26/18 Treatment Diagnosis decreased self care, functional mobility with dx: UTI, rhabdomyolysis Post Operative Precautions Other Precautions fall risk, bed/chair alarm, R hip pain M3 OT- IP Subjective and Pain Start: 03/26/18 15:08 Freq: Status: Active Protocol: Document 03/27/18 13:36 PJM (Rec: 03/27/18 13:43 PJM [email or web address]) OT- Subjective Occupational Therapy Visit Type Type Administrative Note Visit Start Time 13:35 Notes Pt adamantly refusing to get out of bed even after IV morphine provided prior to session. Provided education to pt and his daughter re: benefits of mobilizing out of bed and risks of manager long term care bed rest. Pt still declines to even attempt out of bed. Pt not safe to discharge home due to high care needs and currently requires SNF level of care. Will attempt again in AM, but after 3 refusals, pt will be discharged from caseload. No charge. M4 OT- IP ADL's Start: 03/26/18 15:08 Freq: Status: Active Protocol: Document 03/26/18 11:10 PJM (Rec: 03/26/18 15:38 PJ [id number]) OT [id number] General Evaluation Self-Feeding Ability Standby Assistance Comments OT Self-Feeding Comments Pt needs max encouragement to allow head of bed to be raised as needed for safe oral intake. pt able to feed self with R hand after set up but appetite poor. Pt reports poor /absent dentition so discussed with RN about need for soft diet. OT ADL-Grooming Comments OT Grooming Comments Pt declined to participate OT ADL-Oral Care Comments Oral Care Comments pt declined to participate OT ADL-Dressing General Eval Upper Body Dressing Ability Total Assistance Lower Body Dressing Ability Total Assistance OT ADL-Toileting General Evaluation Toileting Ability Total Assistance OT ADL-Bathing General Evaluation Bathing Ability Total Assistance M5 OT- IP IADL's Start: 03/26/18 15:08 Freq: Status: Active Protocol: Document 03/26/18 11:10 PJM (Rec: 03/26/18 15:38 PJ [id number]) OT-Instrumental Activities of Daily Living Deficits IADL Deficits Identified Deficits Home Safety Awareness Awareness of Need for Assistance at Home Decreased Awareness Ability to Problem Solve Emergency Unable to Problem Solve Situations Medication Management Medication Management Comments Pt needs total assist at present. Money Management Money Management Comments Pt needs total assist at present. Meal Preparation Meal Preparation Comments Pt needs total assist at present. Thermodynamics Professor Thermodynamics Professor Comments Pt needs total assist at present. Driving Driving Comments Pt no longer drives. M6 OT- IP Functional Cognition Start: 03/26/18 15:08 Freq: Status: Active Protocol: Document 03/26/18 11:10 PJM (Rec: 03/26/18 15:38 PJ [id number]) Cognitive Factors Limiting Selfcare Function Cognitive Ability Level of Alertness Alert Patient Orientation Name Year Place Attention Span Ability Unable to Sustain Attention Ability to Follow Commands Able to Follow One Step Commands Memory Description Short Term Impaired Safety Awareness Underestimates Need for Assistance Problem Solving Ability Unable to Identify Errors Needs Assist to Identify Solutions Executive Function Ability Unable to Make Plans Unable to Organize Plans Unable to Remember Details Unable to Integrate Past Experience With Present Action Abstract Thinking Ability Unable to Draw Logical Conclusions Unable to Be Adaptable in Thinking Cognitive Comments Cognitive Assessment Comments Pt very irritable this session ; but agrred to self feeding with encouragement. Decreased recall of recent events at home and decreased insight into current situation. Pt oriented to self, year, hospital. OT- Vision and Hearing OT- Hearing Assessment OT- Hearing Assessment Hearing Impaired OT- Vision Assessment Visual Acuity WFL Vision Assessment Comments Pt wears glasses for TV and reading by hsi report./ PT able to read wall clock without glasses. Pt has bifocals hear. Pt quite [place] but states he does not have hearing aids. M7 OT- IP Mobility and Balance Start: 03/26/18 15:08 Freq: Status: Active Protocol: Document 03/26/18 11:10 PJM (Rec: 03/26/18 15:38 PJ [email or web address]) OT-Transfer Assessment Comments Mobility Comments Pt adamantly declines bed mobility and does not want head of be raise due to R hip pain. OT- Gait Assessment Comments Gait Ability Comments did not occur OT- Balance Assessment Comments Other Balance Tests/Deviations/Treatment did not occur : M8 OT- IP Objective Assessments Start: 03/26/18 15:08 Freq: Status: Active Protocol: Document 03/26/18 11:10 PJM (Rec: 03/26/18 15:38 [facility] [id number]) OT Gross Range of Motion Upper Extremity Range of Motion Assessment Left Impaired ROM Impairments RUE grossly WFL by observation with shoulder scaption limited to ~80 degrees by stiffness. LUE: Pt has large old surgical scar on lateral upper arm. Per RN, pt has no clavicle on that side. Lforearm is significantly atrophied. OT Strength Upper Extremity Strength Assessment Left Impaired Shoulder R: at least 3-/5 L : 0/5 Elbow R: at least 3+/5 L : 0/5 Wrist R: at least 3+/5 Hand R: at least 3+/5 L 1+/5 mass finger flex/ext Hand Review Coordinator Strength Hand Dominance Right Comments Strength Comments Pt did not participate in formal testing. Pt unwilling to try to move LUE. 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 OT- Coordination Assessment Upper Extremity Finger to Nose Test Left UE Impaired Finger Tapping Test Left UE Impaired Comments Coordination Comments RUE appears WFL for self feeding. LUE non functional this session OT-Muscle Tone Assessment Muscle Tone WNL Yes OT Sensation Assessment Comments Summary Comments Unable to assess as pt not willing to participate M9 OT- IP Assessment and Plan Start: 03/26/18 15:08 Freq: Status: Active Protocol: Document 03/26/18 11:10 PJM (Rec: 03/26/18 15:38 [facility] [id number]) OT Summary Assessment and Plan Potential Rehabilitation Potential Fair Analytic Complexity at Evaluation Moderate Summary OT Impairments Pain Range of Motion Strength Balance Coordination Functional Cognition Functional Mobility Grooming Dressing Toileting Bathing Toilet Transfers Shower Transfers Assessment Summary Moderate complexity OT assessment due to comorbidities, evolving medical status with rhabdomyolysis and cognitive deficits. Pt presents with significant performance deficits in all functional mobility and has not yet been out of bed due to R hip pain. He is far below his baseline level of function in all self care. Pt not safe to return home at this time due to high care needs. Currently recommend SNF for further subacute rehab services. Goals Grooming Goal Standby Assistance Dressing Goal Moderate Assistance Toileting Goal Moderate Assistance Toilet Transfer Goal Moderate Assistance Bedside Commode OT-Other Goals Pt to tolerate 1 hr in chair 2x day for self care skills. Days to Meet Goals 7 Frequency of Treatment Frequency Of Treatment Once a Day Treatment Plan OT Treatment Plan ADL Training Functional Cognition Training Patient/Family Education Discharge Planning Discharge Recommendations OT Discharge Recommendations SNF Rehab Home Equipment Needs to be determined pending progress
--- NOTE | 2018-03-27 13:45 | OT.IP.TRT ---
Occupational Therapy Treatment Note M2 OT-IP Current Condition Start: 03/26/18 15:08 Freq: Status: Active Protocol: Document 03/26/18 11:10 PJM (Rec: 03/26/18 15:38 PJM [id number]) Occupational Therapy Current Condition Current Condition Evaluation Date 03/26/18 Treatment Diagnosis decreased self care, functional mobility with dx: UTI, rhabdomyolysis Post Operative Precautions Other Precautions fall risk, bed/chair alarm, R hip pain M3 OT- IP Subjective and Pain Start: 03/26/18 15:08 Freq: Status: Active Protocol: Document 03/27/18 13:36 PJM (Rec: 03/27/18 13:43 PJM [email or web address]) OT- Subjective Occupational Therapy Visit Type Type Administrative Note Visit Start Time 13:35 Notes Pt adamantly refusing to get out of bed even after IV morphine provided prior to session. Provided education to pt and his daughter re: benefits of mobilizing out of bed and risks of middle or intermediate school principal bed rest. Pt still declines to even attempt out of bed. Pt not safe to discharge home due to high care needs and currently requires SNF level of care. Will attempt again in AM, but after 3 refusals, pt will be discharged from caseload. No charge.
--- NOTE | 2018-03-27 15:50 | PC.NURSE ---
Patient refused to get to chair or get up with OT and with RN multiple times today. Reports he is able to get to his chair at home but that he just does not want to today. Reports chronic left shoulder pain (with limited mobility to left shoulder and ROM), repositioned on pillow frequently. Q 2 hour turn in bed with repositioning and pressure relief measures. Brief and shivani care provided with repositioning, patient incontinent of urine. Bed alarm on for safety, with call light within reach.
--- NOTE | 2018-03-27 16:35 | PM.PN.1 ---
Subjective Date Patient Seen: 03/27/18 Interval history: Patient is awake and alert without complaints Exam Vital Signs (past 8 hours): - 03/28/18 11:48 03/28/18 11:51 Temperature 98.1 F Pulse Rate 86 86 Respiratory Rate 22 Blood Pressure 122/77 122/74 Pulse Oximetry 96 Oxygen Delivery Method Room Air Oxygen Flow Rate 0 Narrative Exam Narrative: Obese male in NAD Lungs: decreased breath sounds CV: RRR nl Sl S2 Abd: soft/ non tender/ vental hernia noted, with chronic scarring of skin Ext: no edema Objective Labs Result Diagrams: 03/27/18 02:13 03/27/18 02:13 Assessment & Plan (1) Weakness: Problem details: Needs PT/OT but he refuses. Not sure where he will go when he leaves Current visit: Yes Status: Acute (2) Acute alteration in mental status: Problem details: Better Current visit: Yes Status: Acute (3) Hypertension: Problem details: IMproved Current visit: No Status: Acute (4) Urinary tract infection: Problem details: Repeat U/A reveals no evidence of infection at this time. Will NOT restart antibiotics Qualifiers: Encounter type: Hematuria presence: without hematuria Indwelling urinary catheter type: Urinary tract infection type: site unspecified Qualified Code(s): N39.0 - Urinary tract infection, site not specified Current visit: Yes Status: Acute (5) Acute pulmonary edema: Problem details: Better after discontinuation of IV fluids and Lasix Current visit: Yes Status: Acute Plan: Assessment/Plan Narrative: Need to discuss plan with family Quality VTE Deep Vein Thrombosis/Pulmonary Embolism Present on Admission: No
[2018-03-27] MEDS: METOPROLOL ER 25 MG TABLET PO (20:09)
[2018-03-27] MEDS: SODIUM CHLORIDE 0.9% FLUSH 10 ML IV (20:09)
[2018-03-28] VITALS (8 sets, daily range): BP systolic 100–135; BP diastolic 54–77; PULSE 65–86; RESP 14–22; TEMP 36.4–36.9; O2SAT 90–98
[2018-03-28] MEDS: MORPHINE 2 MG/ML INJ IV ×2 (06:43→21:08)
--- NOTE | 2018-03-28 06:54 | PC.NURSE ---
03/28 0654; pt with stable vital signs on RA. Easily SOB with exertion (in bed turning). Audible crackles throughout. Upon initial assessment, this staff removed heel protectors to visualize heels when re-applying them pt refused. I educated pt that with current sedentary status risks for skin breakdown was severe and that application of heel protectors along with pillow offloading will reduce risks of breakdown. Pt became argumentative and continued to refuse these skin protectant measures. Incontinent of urine, 2 staff members needed to provide care as pt is severely limited in bed motility. Pt will not allow staff to touch left arm, state to be very painful with manipulation.
[2018-03-28] MEDS: GABAPENTIN 600 MG TABLET PO ×2 (09:01→21:05)
[2018-03-28] MEDS: ASPIRIN EC 81 MG TABLET PO (09:01)
[2018-03-28] MEDS: SODIUM CHLORIDE 0.9% FLUSH 10 ML IV (09:01)
--- NOTE | 2018-03-28 09:21 | OT.IP.TRT ---
Occupational Therapy Treatment Note M2 OT-IP Current Condition Start: 03/26/18 15:08 Freq: Status: Active Protocol: Document 03/26/18 11:10 PJM (Rec: 03/26/18 15:38 PJM [id number]) Occupational Therapy Current Condition Current Condition Evaluation Date 03/26/18 Treatment Diagnosis decreased self care, functional mobility with dx: UTI, rhabdomyolysis Post Operative Precautions Other Precautions fall risk, bed/chair alarm, R hip pain M3 OT- IP Subjective and Pain Start: 03/26/18 15:08 Freq: Status: Active Protocol: Document 03/28/18 09:21 PJM (Rec: 03/28/18 12:43 PJM [id number]) OT- Subjective Occupational Therapy Visit Type Type Patient Refusal Visit Start Time 09:15 Visit Stop Time 09:21 Total Visit Minutes 6 Notes Pt fed himself breakfast after set up in bed with improved appetite noted, but refusing to participate in basic grooming tasks after set up. Pt also adamantly refusing to try sitting EOB even after benefits explained and detriment of prolong bedrest described. Pt unable to identify any goals he would like to work on. OT to sign off due to lack of participation in tx. Please reorder OT services if pt's status changes. No charge.
--- NOTE | 2018-03-28 10:02 | PT.IPTN ---
Addendum entered and electronically signed by Pauly Wells PT 03/28/18 10:05: This is to certify that I have reviewed this documentation. Original Note: Physical Therapy Treatment Note M3 PT-IP Subjective Start: 03/26/18 12:19 Freq: NEEDED Status: Active Protocol: Document 03/28/18 08:40 (Rec: 03/28/18 09:29 [email or web address]) Subjective Physical Therapy Visit Type Type Patient Refusal Notes Pt refuses to work with PT this morning stating You should already know, we have been through this. He states his joints hurt too much. This writer technical publications educated the pt that even just sitting up EOB could improve his pain and improve his condition but he replies adamantly No, no, no . PT orders will be discharged. Nurse notified of his recurrent refusals and of PT order discharge. Nurse asked if pt status changes to re-order PT.
[2018-03-28] MEDS: TIZANIDINE 4 MG TABLET PO (11:48)
[2018-03-28] MEDS: METOPROLOL ER 25 MG TABLET PO ×2 (11:48→21:03)
--- NOTE | 2018-03-28 16:39 | PM.PN.1 ---
Subjective Date Patient Seen: 03/28/18 Interval history: No issues overnight. Patient has no further shortness of breath. He refuses PT/OT . Patient is unclear where he will go at discharge Exam Vital Signs (past 8 hours): - 03/28/18 11:48 03/28/18 11:51 Temperature 98.1 F Pulse Rate 86 86 Respiratory Rate 22 Blood Pressure 122/77 122/74 Pulse Oximetry 96 Oxygen Delivery Method Room Air Oxygen Flow Rate 0 Narrative Exam Narrative: Obese male resting comfortable Lungs: decreased bilaterally CV:RRR nl Sl S2 Abd: soft/ protuberant/ventral hernia noted Ext: no edema Objective Labs Result Diagrams: 03/27/18 02:13 03/27/18 02:13 Assessment & Plan (1) Hyponatremia: Problem details: Likely secondary to diuresis. Will follow Current visit: Yes Status: Acute (2) Morbid obesity: Current visit: Yes Status: Acute (3) Acute pulmonary edema: Problem details: Better after discontinuation of IV fluids and Lasix Current visit: Yes Status: Acute (4) Urinary tract infection: Problem details: Repeat U/A reveals no evidence of infection at this time. Will NOT restart antibiotics Qualifiers: Encounter type: Hematuria presence: without hematuria Indwelling urinary catheter type: Urinary tract infection type: site unspecified Qualified Code(s): N39.0 - Urinary tract infection, site not specified Current visit: Yes Status: Acute (5) Weakness: Problem details: Needs PT/OT but he refuses. Not sure where he will go when he leaves Current visit: Yes Status: Acute (6) Acute alteration in mental status: Problem details: Better Current visit: Yes Status: Acute (7) Hypertension: Problem details: IMproved Current visit: No Status: Acute Plan: Assessment/Plan Narrative: SNF vs. home tomorrow Quality VTE Deep Vein Thrombosis/Pulmonary Embolism Present on Admission: No
[2018-03-28 18:15] LABS: Add Manual Diff / Slide Review NO; Basophils Percent Auto 0.7 % (0-2); Creatine Kinase 58 U/L (55-170); Eosinophils Percent Auto 6.7 % (2-4); Hematocrit 34.5 % (41-53); Hemoglobin 11.8 g/dL (13.5-17.5); Lymphocytes Percent Auto 12.4 % (25-40); Mean Corpuscular HGB Conc 34.2 % (30-36); Mean Corpuscular Hemoglobin 36.2 PG (26-34); Mean Corpuscular Volume 105.9 fL (80-100); Monocytes Percent Auto 10.2 % (3-14); Neutrophils Absolute Auto 5800 /uL (3000-5900); Platelet Count 347 X10^3/uL (150-400); Red Blood Cell Count 3.26 X10^6/uL (4.5-5.9); Red Cell Distribution Width 12.8 % (11.6-14.8); White Blood Cell Count 8.3 X10^3/uL (4.5-11.0)
[2018-03-29] VITALS (13 sets, daily range): BP systolic 103–144; BP diastolic 49–72; PULSE 67–75; RESP 15–20; TEMP 36.6–36.9; O2SAT 94–100
--- NOTE | 2018-03-29 06:17 | PC.NURSE ---
03/29 0617; No significant changes this shift, VSS on RA, crackles throughout and more audible on the right. Able to maintain O2 saturations above 92% on RA, but will easily become short of breath with activity (in bed motility). Apathetic during interactions but cooperated with care.
[2018-03-29 06:23] LABS: Blood Urea Nitrogen 12 mg/dL (9-20); Calcium 7.7 mg/dL (8.4-10.2); Carbon Dioxide 26 mmol/L (22-32); Chloride 100 mmol/L (98-107); Estimated Glomerular Filt Rate > 60.0 mL/min (>60); Glucose 112 mg/dL (80-110); HEMOLYSIS < 15 (0-50); Potassium 3.5 mmol/L (3.4-5.1); Sodium 131 mmol/L (137-145)
[2018-03-29] MEDS: MORPHINE 2 MG/ML INJ IV ×3 (09:28→20:49)
[2018-03-29] MEDS: ASPIRIN EC 81 MG TABLET PO (09:29)
[2018-03-29] MEDS: SODIUM CHLORIDE 0.9% FLUSH 10 ML IV ×2 (09:29→20:49)
[2018-03-29] MEDS: METOPROLOL ER 25 MG TABLET PO ×2 (09:29→20:49)
[2018-03-29] MEDS: GABAPENTIN 600 MG TABLET PO ×2 (09:29→20:49)
--- NOTE | 2018-03-29 13:35 | CM.DPC ---
DCP: continued: Case discussed yesterday with OT Soraya and in Team Rounds yesterday and again today. PT and OT did d/c pt from services yesterday for a continued refusal by pt to work with them. Dr. Miranda will see pt today. Met then at length with pt. Identified self and role. At first pt said he could not hear but did begin to respond to questions and then begin offering other information. Pt says he will be going home at d/c. He says the home is his, his youngest son is in process of buying it but that he will continue to live there. He did not wish to give the name of this son or son's , only saying that both lived at the home, that his son was a rod machine operator and his usually goes with him and they are gone for long stretches of day during the crabbing season. He says his daughter Sussy helps him out much of the time. He says she helps him to the bathroom when his son is not there. When no one is there it's harder for me. Pt says he does have many people who check in often with him including the police. They are good and repectful to me and I am glad they check in. They know I have a history of violence. My son is also easily angered. The family know not to make me mad. Pt says he will go home when I am well. I am not well now. Discussed his benefits for a detention stay while he recovers. I went once a few years ago. Never again. My family will try to take my money and property and I didn't like it there.. Discussed Home health and what they might do for him including getting equipment that might make it easier for him at home. Asked also what equipment he had at home. Pt replied those things are not your business. That is the inside of my home and I do not have to talk about that. He was firm that he did not want to consider the services. Did ask pt how this DCPlanner might help him get to his goal of home as our hospital team were unsure if he could even stand. Asked if a therapist could help him get out of bed so that the doctor would know that he was able to safely go home. He replied the therapists cannot tell me what to do and they have no say in whether I go to my own home. You can call my daughter Sussy and she will be the one to pick me up. She is of good help to me. She's had a hard life, we all have. Thanked pt for the conversation and said I would call Sussy/augie and a vm was left for her [phone]. FRANCISCO JAVIER Burton and Dr. Miranda were updated this conversation. P: pt desires home, as per above. DCP team will be following.
--- NOTE | 2018-03-29 14:22 | PM.PN.1 ---
Subjective Date Patient Seen: 03/29/18 Time Patient Seen: 14:23 Interval history: He is seen today to follow-up his weakness, transient pulmonary edema, hypertension and encephalopathy. He is very hard of hearing, and somewhat distracted, basically just echoing my questions as I try to clarify how he is doing. He lives in the [facility]. He did share much more with the conference planner when she visited with him several hours later. Sepsis was ruled out. We were clinically unable to determine the exact cause of the acute encephalopathy although we suspect it was the dehydration on admission. Exam Vital Signs (past 8 hours): - 03/29/18 08:00 03/29/18 10:30 Temperature 98.4 F Pulse Rate 75 Respiratory Rate 20 Blood Pressure 112/54 L Pulse Oximetry 96 96 Oxygen Delivery Method Room Air Oxygen Flow Rate 0 Narrative Exam Narrative: Heart is regular rate and rhythm without murmur lungs are clear to auscultation bilaterally but I am unable to convince him to lean forward so I can get a good posterior exam. Extremities have 1+ pitting ankle edema bilaterally. He is very distracted, [id number] and echos my questions. Objective Labs Result Diagrams: 03/28/18 17:30 03/29/18 05:31 Labs: Laboratory Results - last 24 hr 03/28/18 03/28/18 03/29/18 17:30 17:30 05:31 WBC 8.3 RBC 3.26 L Hgb 11.8 L Hct 34.5 L MCV 105.9 H MCH 36.2 H MCHC 34.2 RDW 12.8 Plt Count 347 Neut % (Auto) 70.0 Lymph % (Auto) 12.4 L Bertie % (Auto) 10.2 Eos % (Auto) 6.7 H Baso % (Auto) 0.7 Neut # (Auto) 5800 Sodium 131 L Potassium 3.5 Chloride 100 Carbon Dioxide 26 BUN 12 Creatinine 1.00 Estimated GFR > 60.0 BUN/Creatinine Ratio 12.0 Glucose 112 H Calcium 7.7 L Total Creatine Kinase 58 Assessment & Plan (1) Hyponatremia: Problem details: Likely secondary to diuresis. One hundred thirty-three today. Will follow Current visit: Yes Status: Acute (2) Acute pulmonary edema: Problem details: Better after discontinuation of IV fluids and Lasix Current visit: Yes Status: Acute (3) Urinary tract infection: Problem details: Recent repeat U/A reveals no evidence of infection at this time. Will NOT restart antibiotics Qualifiers: Encounter type: Hematuria presence: without hematuria Indwelling urinary catheter type: Urinary tract infection type: site unspecified Qualified Code(s): N39.0 - Urinary tract infection, site not specified Current visit: Yes Status: Acute (4) Weakness: Problem details: Needs PT/OT but he refuses. Not sure where he will go when he leaves Discharge planning has been challenging. He was more forthcoming with them today then with me. Apparently his daughter is the major influence of this factor and so we will see where that goes. Hopefully he can be discharged in the morning. He certainly looks like he could do better with a SNF stay and certainly with some PT/OT but he has said that he will go home on his own without listening to anything PT has to say. Current visit: Yes Status: Acute (5) Acute alteration in mental status: Problem details: Better Current visit: Yes Status: Acute Quality VTE Deep Vein Thrombosis/Pulmonary Embolism Present on Admission: No
--- NOTE | 2018-03-29 14:26 | P.PN_ITS ---
Subjective Date Patient Seen: 03/29/18 Time Patient Seen: 14:23 Interval history: He is seen today to follow-up his weakness, transient pulmonary edema, hypertension and encephalopathy. He is very hard of hearing, and somewhat distracted, basically just echoing my questions as I try to clarify how he is doing. He lives in the [facility]. He did share much more with the systems requirements planner when she visited with him several hours later. Sepsis was ruled out. We were clinically unable to determine the exact cause of the acute encephalopathy although we suspect it was the dehydration on admission. Exam Vital Signs (past 8 hours): - 03/29/18 08:00 03/29/18 10:30 Temperature 98.4 F Pulse Rate 75 Respiratory Rate 20 Blood Pressure 112/54 L Pulse Oximetry 96 96 Oxygen Delivery Method Room Air Oxygen Flow Rate 0 Narrative Exam Narrative: Heart is regular rate and rhythm without murmur lungs are clear to auscultation bilaterally but I am unable to convince him to lean forward so I can get a good posterior exam. Extremities have 1+ pitting ankle edema bilaterally. He is very distracted, [id number] and echos my questions. Objective Labs Result Diagrams: 03/28/18 17:30 03/29/18 05:31 Labs: Laboratory Results - last 24 hr 03/28/18 03/28/18 03/29/18 17:30 17:30 05:31 WBC 8.3 RBC 3.26 L Hgb 11.8 L Hct 34.5 L MCV 105.9 H MCH 36.2 H MCHC 34.2 RDW 12.8 Plt Count 347 Neut % (Auto) 70.0 Lymph % (Auto) 12.4 L [place] % (Auto) 10.2 Eos % (Auto) 6.7 H Baso % (Auto) 0.7 Neut # (Auto) 5800 Sodium 131 L Potassium 3.5 Chloride 100 Carbon Dioxide 26 BUN 12 Creatinine 1.00 Estimated GFR > 60.0 BUN/Creatinine Ratio 12.0 Glucose 112 H Calcium 7.7 L Total Creatine Kinase 58 Assessment & Plan (1) Hyponatremia: Problem details: Likely secondary to diuresis. One hundred thirty-three today. Will follow Current visit: Yes Status: Acute (2) Acute pulmonary edema: Problem details: Better after discontinuation of IV fluids and Lasix Current visit: Yes Status: Acute (3) Urinary tract infection: Problem details: Recent repeat U/A reveals no evidence of infection at this time. Will NOT restart antibiotics Qualifiers: Encounter type: Hematuria presence: without hematuria Indwelling urinary catheter type: Urinary tract infection type: site unspecified Qualified Code(s): N39.0 - Urinary tract infection, site not specified Current visit: Yes Status: Acute (4) Weakness: Problem details: Needs PT/OT but he refuses. Not sure where he will go when he leaves Discharge planning has been challenging. He was more forthcoming with them today then with me. Apparently his daughter is the major influence of this factor and so we will see where that goes. Hopefully he can be discharged in the morning. He certainly looks like he could do better with a SNF stay and certainly with some PT/OT but he has said that he will go home on his own without listening to anything PT has to say. Current visit: Yes Status: Acute (5) Acute alteration in mental status: Problem details: Better Current visit: Yes Status: Acute Quality VTE Deep Vein Thrombosis/Pulmonary Embolism Present on Admission: No
[2018-03-29] MEDS: NITROGLYCERIN 0.4 MG SL TAB SL (15:06)
--- NOTE | 2018-03-29 15:12 | PC.NURSE ---
Addendum entered by Micheal Roblero R.N. 03/29/18 15:14: late entry: dr. croft notified of stage 2 pressure injury to patient's coccyx, w/ allyvn boarder foam drsg applied. no new orders r/t same. Original Note: patient c/o chest pain 03/13 centralized. no radiation. worse with deep breaths. vss. ra sat 100%. dr. croft notified of the above including lungs w/ crackles throughout per same this am. order for stat ekg, troponin and nitro sl. report given to evening shift nurse.
[2018-03-29 15:34] LABS: Creatine Kinase 44 U/L (55-170)
[2018-03-29 15:51] LABS: Troponin I < 0.012 ng/mL (0.01-0.034)
[2018-03-30] VITALS (7 sets, daily range): BP systolic 95–137; BP diastolic 55–77; PULSE 61–76; RESP 17–20; TEMP 36.3–36.7; O2SAT 95–98
[2018-03-30] MEDS: MORPHINE 2 MG/ML INJ IV ×2 (06:17→17:46)
--- NOTE | 2018-03-30 08:59 | PM.PN.1 ---
Subjective Interval history: There has been no new events no new problems in the prior 24 hr. Patient denies dyspnea orthopnea PND nausea vomiting palpitation or chest pain Exam Vital Signs (past 8 hours): - 03/30/18 06:39 03/30/18 07:49 Temperature 98.1 F 97.4 F L Pulse Rate 72 71 Respiratory Rate 17 17 Blood Pressure 123/55 L 118/58 L Pulse Oximetry 97 95 Oxygen Delivery Method Room Air Oxygen Flow Rate 0 Narrative Exam Narrative: General: NAD HEENT: PERRLA bilaterally, EOMI bilaterally FUNDI NOT VISUALIZED CLEAR NONICTERIC OROPHARYNX CLEAR Neck: Supple, no LAD or JVD CV: Regular rate rhythm, no murmurs or gallops Respiratory: Clear to auscultation on anterior auscultation GI: Benign, bowel sounds active Musculoskeletal: Trace bilateral lower extremity edema Neuro: Grossly nonfocal Psych: He is awake slow to respond to questions. oriented to his name and date of . Does not know where he is Objective Labs Result Diagrams: 03/28/18 17:30 03/29/18 05:31 Labs: Laboratory Results - last 24 hr 03/29/18 15:15 Total Creatine Kinase 44 L CK-MB (CK-2) TNP CK-MB (CK-2) Rel Index TNP Troponin I < 0.012 Assessment & Plan Plan: Assessment/Plan Narrative: 1. Hypotension -resolved, now -Was likely due to dehydration -patient received 3 L normal saline boluses, and was maintained on 250cc/hr -his Metoprolol Succinate 25mg BID has been resumed and his blood pressures remained stable 2. Rhabdomyolysis, resolved -likely due to fall -creatinine stable, at 1.0 -CPK has normalized and was 44 yesterday 3. UTI - urine culture grew group B strep -leukocytosis has resolved with WBC count of 8.3 on 03/28/2018. Patient remains afebrile - antibiotics have been discontinued 4. Right hip pain -x-rays revealed no acute hip fractures -pain control better 5. LFT elevation -most likely secondary to his CK as AST will also be elevated as it is a muscle enzyme as well -Currently on the downtrend - GB/Liver US did not reveal a paddle biliary problems -Chem panel in a.m. 6. GERD -continue ranitidine home medication 7. Acute encephalopathy -felt secondary to dehydration This has improved -CT head showed no acute intracranial pathology -continue to monitor mental status 8. Tachycardia - resolved -now consistently in the 60s-70s Quality VTE Deep Vein Thrombosis/Pulmonary Embolism Present on Admission: No
[2018-03-30] MEDS: GABAPENTIN 600 MG TABLET PO ×2 (10:46→20:31)
[2018-03-30] MEDS: ASPIRIN EC 81 MG TABLET PO (10:46)
[2018-03-30] MEDS: METOPROLOL ER 25 MG TABLET PO ×2 (10:46→20:31)
[2018-03-30] MEDS: TIZANIDINE 4 MG TABLET PO (10:46)
[2018-03-30] MEDS: SODIUM CHLORIDE 0.9% FLUSH 10 ML IV ×3 (10:47→20:32)
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
--- NOTE | 2018-03-30 15:04 | CM.DANOTE ---
DCP Cont: Called and spoke to daughter, Sussy, about discharge status. As patient is medically stable, could be potentially discharged tomorrow. Patient continues to avoid physical therapy at this point. Requested to daughter that we meet in the morning to discuss discharge. Also, in agreement that social work manager will be available as well. Made an appt time for 10:00am. P: Will meet with family tomorrow to discuss discharge. Solange Flor RN/Service Loss Control Consultant
--- NOTE | 2018-03-30 20:13 | PC.NURSE ---
Addendum entered by Verona Simmons R.N. 03/30/18 23:08: went ot give pt tinazidine prn and pt was asleep. will continue to monitor. Original Note: Addendum entered by Verona Simmons R.N. 03/30/18 22:10: Pt complains of pain. given warm blanket to wrap in left shoulder as pt states thats where it hurts the most prns not yet due, till give when due. pt changed, pad changed and pt refused to let us put pillows underneath. waffle cushion in place however. Pt educated on why we put pillows under and pt stated well you area ll tugging and pulling too. pt educated and still refused. Original Note: Pt refused SCDs. pt cooperative with turning while changing pt. pt had two small smears/diarrhea like. Pt Q2 turn but patient needs on ra. denies pain at this time. holds his left arm up. does not have ability to grasp with left hand. able to wiggle fingers however. allevyn changed to coccyx and new date. barrier cream applied to bottom. Pt ate dinner. stated coffee was good. Pt asked if he had any diabetes history and pt asked what is that Pt uses call light. pt was continent of urine while in the room changing pt needed to void and asked for urinal. however pt does not call when needing to void, he usually is incontinent and goes in his brief. encouraged to call with needing assistance. positioned until pt felt comfortable. will continue to monitor pt for safety.
[2018-03-30] MEDS: DOCUSATE 100 MG CAPSULE PO (20:31)
--- NOTE | 2018-03-31 01:01 | PC.NURSE ---
0030 Checked pt. to do assessment & VS, but he is sound asleep. Will monitor & assess him when he wakes up.
[2018-03-31 01:40] VITALS: O2SAT 99
[2018-03-31] MEDS: SODIUM CHLORIDE 0.9% FLUSH 10 ML IV ×2 (01:45→08:47)
[2018-03-31] MEDS: MORPHINE 2 MG/ML INJ IV ×2 (01:45→11:27)
[2018-03-31 01:46] VITALS: BP 120/59; PULSE 65; RESP 18; TEMP 36.7; O2SAT 97
[2018-03-31 05:17] VITALS: BP 102/52; PULSE 74; RESP 16; TEMP 36.8; O2SAT 96
[2018-03-31 08:09] VITALS: O2SAT 96
[2018-03-31 08:39] VITALS: BP 116/57; PULSE 71; RESP 18; TEMP 36.4; O2SAT 96
[2018-03-31] MEDS: ASPIRIN EC 81 MG TABLET PO (08:46)
[2018-03-31] MEDS: METOPROLOL ER 25 MG TABLET PO (08:46)
[2018-03-31] MEDS: GABAPENTIN 600 MG TABLET PO (08:46)
[2018-03-31] MEDS: DOCUSATE 100 MG CAPSULE PO (08:46)
[2018-03-31] MEDS: TIZANIDINE 4 MG TABLET PO (08:48)
--- NOTE | 2018-03-31 10:11 | PM.PN.1 ---
Subjective Date Patient Seen: 03/31/18 Time Patient Seen: 10:12 Interval history: He is seen today to follow up the resolved rhabdomyolysis, the liver function test elevation, the now resolved acute encephalopathy, resolved dehydration. He continues to refuse rehab therapies. Discharge planning is working on the logistics of a safe discharge plan. He says his daughter will take him home. We need to confirm that. He looks very weak and really should be going to a long term facility but refuses all assistance in that regard. Perhaps the [place], his family, etcetera will be able to match that level of care in his own home. Exam Vital Signs (past 8 hours): - 03/31/18 05:17 03/31/18 08:39 Temperature 98.2 F 97.6 F Pulse Rate 74 71 Respiratory Rate 16 18 Blood Pressure 102/52 L 116/57 L Pulse Oximetry 96 96 Fraction of Inspired Oxygen 0 Oxygen Delivery Method Room Air Oxygen Flow Rate 0 Narrative Exam Narrative: His responses are slowed and I am not able to engage at a normal pace. As I leave the room he says ?I think the hospital is helping me?. That was the most related response to my series of questions that he was able to give me. Heart is regular rate and rhythm without murmur, lungs have bilateral crackles, extremities have no ankle edema. Objective Labs Result Diagrams: 03/28/18 17:30 03/29/18 05:31 Assessment & Plan Plan: Assessment/Plan Narrative: 1. Hypotension -resolved, now -Was likely due to dehydration -patient received several boluses and maintenance fluid but has been off it for now. -his Metoprolol Succinate 25mg BID has been resumed and his blood pressures remained stable, currently at 102/52. 2. Rhabdomyolysis, resolved -likely due to fall -creatinine stable, at 1.0 -CPK has normalized. 3. UTI - urine culture grew group B strep -leukocytosis has resolved with WBC count of 8.3 on 03/28/2018. Patient remains afebrile - antibiotics have been discontinued 4. Right hip pain -x-rays revealed no acute hip fractures -pain control better 5. LFT elevation -most likely secondary to his CK as AST will also be elevated as it is a muscle enzyme as well -Currently on the downtrend - GB/Liver US showed no evidence of gallbladder disease other than mild thickening of the wall - repeat LFT tomorrow 6. GERD -continue ranitidine home medication 7. Acute encephalopathy -felt secondary to dehydration This has improved -CT head showed no acute intracranial pathology -continue to monitor mental status 8. Tachycardia - resolved -now consistently in the 60s-70s 9. Disposition - refusing rehab therapy evaluation and SNF. - director social service/tool planner working with family for timely discharge home. This may require the assistance of his [facility] medical department. Quality VTE Deep Vein Thrombosis/Pulmonary Embolism Present on Admission: No
--- NOTE | 2018-03-31 10:20 | P.PN_ITS ---
Subjective Date Patient Seen: 03/31/18 Time Patient Seen: 10:12 Interval history: He is seen today to follow up the resolved rhabdomyolysis, the liver function test elevation, the now resolved acute encephalopathy, resolved dehydration. He continues to refuse rehab therapies. Discharge planning is working on the logistics of a safe discharge plan. He says his daughter will take him home. We need to confirm that. He looks very weak and really should be going to a intermediate facility but refuses all assistance in that regard. Perhaps the [place], his family, etcetera will be able to match that level of care in his own home. Exam Vital Signs (past 8 hours): - 03/31/18 05:17 03/31/18 08:39 Temperature 98.2 F 97.6 F Pulse Rate 74 71 Respiratory Rate 16 18 Blood Pressure 102/52 L 116/57 L Pulse Oximetry 96 96 Fraction of Inspired Oxygen 0 Oxygen Delivery Method Room Air Oxygen Flow Rate 0 Narrative Exam Narrative: His responses are slowed and I am not able to engage at a normal pace. As I leave the room he says ?I think the hospital is helping me?. That was the most related response to my series of questions that he was able to give me. Heart is regular rate and rhythm without murmur, lungs have bilateral crackles, extremities have no ankle edema. Objective Labs Result Diagrams: 03/28/18 17:30 03/29/18 05:31 Assessment & Plan Plan: Assessment/Plan Narrative: 1. Hypotension -resolved, now -Was likely due to dehydration -patient received several boluses and maintenance fluid but has been off it for now. -his Metoprolol Succinate 25mg BID has been resumed and his blood pressures remained stable, currently at 102/52. 2. Rhabdomyolysis, resolved -likely due to fall -creatinine stable, at 1.0 -CPK has normalized. 3. UTI - urine culture grew group B strep -leukocytosis has resolved with WBC count of 8.3 on 03/28/2018. Patient remains afebrile - antibiotics have been discontinued 4. Right hip pain -x-rays revealed no acute hip fractures -pain control better 5. LFT elevation -most likely secondary to his CK as AST will also be elevated as it is a muscle enzyme as well -Currently on the downtrend - GB/Liver US showed no evidence of gallbladder disease other than mild thickening of the wall - repeat LFT tomorrow 6. GERD -continue ranitidine home medication 7. Acute encephalopathy -felt secondary to dehydration This has improved -CT head showed no acute intracranial pathology -continue to monitor mental status 8. Tachycardia - resolved -now consistently in the 60s-70s 9. Disposition - refusing rehab therapy evaluation and SNF. - director of social media marketing/business planner working with family for timely discharge home. This may require the assistance of his [facility] medical department. Quality VTE Deep Vein Thrombosis/Pulmonary Embolism Present on Admission: No
--- NOTE | 2018-03-31 10:44 | PM.DS.1 ---
History of Present Illness Chief complaint: SOB, chest pain Discharge Providers Date of admission: 03/25/18 13:04 Primary care physician: Rebeca Ruiz PA-C Consults: 03/25/18 14:31 Consult to Physical Therapy Evaluate & Treat Comment: FALLS Physician Instructions: Evaluate and Treat Consult to Tax Professional Routine Comment: LIVING ALONE. FAMILY NOT ALWAYS THERE 03/25/18 14:32 Consult to Occupational Therapy Evaluate & Treat Comment: FALLS Physician Instructions: Evaluate and treat 03/31/18 10:36 Consult to Home Health Routine Comment: Reason For Exam: Nursing, P.T, O.T, CHIEF DESIGN BRANCH Discharge provider: Malachi Miranda MD Discharge Date: 03/31/18 Summary Hospital Course: He is seen today to follow up the resolved rhabdomyolysis, the liver function test elevation, the now resolved acute encephalopathy, resolved dehydration. He continues to refuse rehab therapies. Discharge planning is working on the logistics of a safe discharge plan. He says his daughter will take him home. He looks very weak and really should be going to a alf facility but refuses all assistance in that regard. Perhaps the [facility], his family, etcetera will be able to match that level of care in his own home. 1. Hypotension -resolved, now -Was likely due to dehydration -patient received several boluses and maintenance fluid but has been off it for now. -his Metoprolol Succinate 25mg BID has been resumed and his blood pressures remained stable, currently at 102/52. 2. Rhabdomyolysis, resolved -likely due to fall -creatinine stable, at 1.0 -CPK has normalized. 3. UTI - urine culture grew group B strep -leukocytosis has resolved with WBC count of 8.3 on 03/28/2018. Patient remains afebrile - antibiotics have been discontinued 4. Right hip pain -x-rays revealed no acute hip fractures -pain control better 5. LFT elevation -most likely secondary to his CK as AST will also be elevated as it is a muscle enzyme as well -Currently on the downtrend - GB/Liver US showed no evidence of gallbladder disease other than mild thickening of the wall - repeat LFT tomorrow 6. GERD -continue ranitidine home medication 7. Acute encephalopathy -felt secondary to dehydration This has improved -CT head showed no acute intracranial pathology -continue to monitor mental status 8. Tachycardia - resolved -now consistently in the 60s-70s 9. Disposition - refusing rehab therapy evaluation and SNF. - social work specialist/brand planner have spoken with his daughter and arranged discharge home today. This definitely will require the assistance of his [facility] medical department. Status at Discharge Functional status at discharge: bed bound Overall status at discharge: patient is not back to baseline Time Spent with Patient Greater than 30 minutes Exam Vital Signs (past 8 hours): - 03/31/18 05:17 03/31/18 08:39 Temperature 98.2 F 97.6 F Pulse Rate 74 71 Respiratory Rate 16 18 Blood Pressure 102/52 L 116/57 L Pulse Oximetry 96 96 Fraction of Inspired Oxygen 0 Oxygen Delivery Method Room Air Oxygen Flow Rate 0 Narrative Exam Narrative: His responses are slowed and I am not able to engage at a normal pace. As I leave the room he says ?I think the hospital is helping me?. That was the most related response to my series of questions that he was able to give me. Heart is regular rate and rhythm without murmur, lungs have bilateral crackles, extremities have no ankle edema. Objective Labs Result Diagrams: 03/28/18 17:30 03/29/18 05:31 Discharge Plan Discharge Plan Patient Disposition: Home Health Service Transfer to: [facility] Discharge comment: This discharge to home can only be considered safe if Family provides SNF level of care, his [facility] physician is able to see him very soon, Home Health is able to see him soon and the [facility] community is able to step up to fill in gaps in his care. Discharge Med Rec/Prescriptions Prescriptions: Continue ranitidine HCl 150 mg Tablet 150 mg PO BID Qty: 0 RF: 0 tizanidine 4 mg Tablet 4 mg PO BID PRN (Reason: Muscle Spasm) RF: 0 aspirin 81 mg Tablet,Delayed Release (Dr/Ec) 81 mg PO DAILY RF: 0 omeprazole 20 mg Capsule,Delayed Release(Dr/Ec) 1 cap PO BID RF: 0 metoprolol succinate 25 mg Tablet Extended Release 24 Hr 25 mg PO BID RF: 0 loratadine 10 mg Tablet 10 mg PO DAILY RF: 0 gabapentin 300 mg Capsule 600 mg PO BID RF: 0 Follow up/Referrals: Rebeca Ruiz PA-C [Primary Care Provider] - (See JOSE this week) Provider Discharge Instructions Diet: Diet as Tolerated Activity: Resume safe activity as tolerated Home Health PT if he will allow it. Skin/Wound/Dressing Care Report to your healthcare provider any signs of infection, such as:: chills, fever, night sweats and increased pain Discharge Data Primary Care Provider: Rebeca Ruiz Attending Provider: Meli Dougherty Admit Date/Time: 03/25/18 13:04 Quality VTE Deep Vein Thrombosis/Pulmonary Embolism Present on Admission: No
--- NOTE | 2018-03-31 10:53 | P.DS_ITS ---
History of Present Illness Chief complaint: SOB, chest pain Discharge Providers Date of admission: 03/25/18 13:04 Primary care physician: Rebeca Ruiz PA-C Consults: 03/25/18 14:31 Consult to Physical Therapy Evaluate & Treat Comment: FALLS Physician Instructions: Evaluate and Treat Consult to Honing Machine Operator Production Routine Comment: LIVING ALONE. 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 He continues to refuse rehab therapies. Discharge planning is working on the logistics of a safe discharge plan. He says his daughter will take him home. He looks very weak and really should be going to a senior care facility but refuses all assistance in that regard. Perhaps the [facility], his family, etcetera will be able to match that level of care in his own home. 1. Hypotension -resolved, now -Was likely due to dehydration -patient received several boluses and maintenance fluid but has been off it for now. -his Metoprolol Succinate 25mg BID has been resumed and his blood pressures remained stable, currently at 102/52. 2. Rhabdomyolysis, resolved -likely due to fall -creatinine stable, at 1.0 -CPK has normalized. 3. UTI - urine culture grew group B strep -leukocytosis has resolved with WBC count of 8.3 on 03/28/2018. Patient remains afebrile - antibiotics have been discontinued 4. Right hip pain -x-rays revealed no acute hip fractures -pain control better 5. LFT elevation -most likely secondary to his CK as AST will also be elevated as it is a muscle enzyme as well -Currently on the downtrend - GB/Liver US showed no evidence of gallbladder disease other than mild thickening of the wall - repeat LFT tomorrow 6. GERD -continue ranitidine home medication 7. Acute encephalopathy -felt secondary to dehydration This has improved -CT head showed no acute intracranial pathology -continue to monitor mental status 8. Tachycardia - resolved -now consistently in the 60s-70s 9. Disposition - refusing rehab therapy evaluation and SNF. - social insurance specialist/internet media planner have spoken with his daughter and arranged discharge home today. This definitely will require the assistance of his [facility] medical department. Status at Discharge Functional status at discharge: bed bound Overall status at discharge: patient is not back to baseline Time Spent with Patient Greater than 30 minutes Exam Vital Signs (past 8 hours): - 03/31/18 05:17 03/31/18 08:39 Temperature 98.2 F 97.6 F Pulse Rate 74 71 Respiratory Rate 16 18 Blood Pressure 102/52 L 116/57 L Pulse Oximetry 96 96 Fraction of Inspired Oxygen 0 Oxygen Delivery Method Room Air Oxygen Flow Rate 0 Narrative Exam Narrative: His responses are slowed and I am not able to engage at a normal pace. As I leave the room he says ?I think the hospital is helping me?. That was the most related response to my series of questions that he was able to give me. Heart is regular rate and rhythm without murmur, lungs have bilateral crackles, extremities have no ankle edema. Objective Labs Result Diagrams: 03/28/18 17:30 03/29/18 05:31 Discharge Plan Discharge Plan Patient Disposition: Home Health Service Transfer to: [facility] Discharge comment: This discharge to home can only be considered safe if Family provides SNF level of care, his [facility] physician is able to see him very soon, Home Health is able to see him soon and the [facility] community is able to step up to fill in gaps in his care. Discharge Med Rec/Prescriptions Prescriptions: Continue ranitidine HCl 150 mg Tablet 150 mg PO BID Qty: 0 RF: 0 tizanidine 4 mg Tablet 4 mg PO BID PRN (Reason: Muscle Spasm) RF: 0 aspirin 81 mg Tablet,Delayed Release (Dr/Ec) 81 mg PO DAILY RF: 0 omeprazole 20 mg Capsule,Delayed Release(Dr/Ec) 1 cap PO BID RF: 0 metoprolol succinate 25 mg Tablet Extended Release 24 Hr 25 mg PO BID RF: 0 loratadine 10 mg Tablet 10 mg PO DAILY RF: 0 gabapentin 300 mg Capsule 600 mg PO BID RF: 0 Follow up/Referrals: Rebeca Ruiz PA-C [Primary Care Provider] - (See JOSE this week) Provider Discharge Instructions Diet: Diet as Tolerated Activity: Resume safe activity as tolerated Home Health PT if he will allow it. Skin/Wound/Dressing Care Report to your healthcare provider any signs of infection, such as:: chills, fever, night sweats and increased pain Discharge Data Primary Care Provider: Rebeca Ruiz Attending Provider: Meli Dougherty Admit Date/Time: 03/25/18 13:04 Quality VTE Deep Vein Thrombosis/Pulmonary Embolism Present on Admission: No
--- NOTE | 2018-03-31 10:57 | CM.DPC ---
DCP Cont: Was able to meet with daughter, juju Hi also present in room. Also present was Yasmine, director of social work. Discussed discharge plan with patient. Asked him what he wanted to do? Stated that he wanted to go home. Stated, Haven't we been through this before. Mentioned to patient that concern was his weakness, and not wanting to work with physical therapy. Did mention short term rehab to patient, but refused. Asked about [facility] support to daughter. Stated that his doctor is the [facility], Rebeca Ruiz, and would see patient when discharged. Let patient and her know that patient is medically stable, and could be discharged today, but of significance to have a plan in place. Patient stated, It is difficult for him to get out of bed, and worries about his constipation Discussed home health option. Asked patient if he was willing and accepting patient to go into his home? Stated that he would. Asked daughter if she had any option of home health agency, and she did not. Went ahead and updated hospitalist, that daughter would take patient home today, and would use support of physical therapy to help get patient into vehicle. She also stated that her brother could help him out at home. Updated Dr. Miranda, hospitalist, regarding plan. Mentioned nursing, physical and occupational therapy, as well as CARROTER consult when going home. Will go ahead and proceed with plan. P: Should be discharging home with home health. Family is to transport. Solange Flor RN/[facility] [place]
== END 2018-03-31 11:45 | disposition home health service (06) | DRG 70 ==
LOC: ED 12:51 → AC 13:05
PROVIDERS: Family Medicine; Internal Medicine; Admitting Provider Internal Medicine; Emergency Provider Emergency Medicine; Family Provider Physician Assistant; PCP Physician Assistant; Visit Provider Internal Medicine
DX: G93.41 Metabolic encephalopathy (principal); J81.0 Acute pulmonary edema; M62.82 Rhabdomyolysis; E87.1 Hypo-osmolality and hyponatremia; N39.0 Urinary tract infection, site not specified; E86.0 Dehydration; B95.1 Streptococcus, group B, as the cause of diseases classified elsewhere; I10 Essential (primary) hypertension; K21.9 Gastro-esophageal reflux disease without esophagitis; R00.0 Tachycardia, unspecified; I95.9 Hypotension, unspecified; R94.5 Abnormal results of liver function studies; M25.551 Pain in right hip; W19.XXXA Unspecified fall, initial encounter; R29.6 Repeated falls
CPT/HCPCS: 36415; 70450; 71045; 72170; 76705; 80048; 80053; 81001; 81003; 81015; 82550; 83605; 83690; 83735; 84145; 84443; 84484; 85025; 87040; 87077; 87086; 87147; 93005; 93010; 94760; 96360; 96361; 96365; 97166; 99285; J1940; J2270